=== PATIENT | female | born 1990 | race Caucasian/White ===

== ENCOUNTER 2016-10-30 09:16 | Emergency (ER) | payer MEDICAID, OTHER ==
--- NOTE | 2016-10-30 10:16 | ED ---
Lower Extremity Injury HPI - General Chief Complaint: Extremity Injury, Lower Stated Complaint: stepped on nail, rt foot Source: patient, RN notes reviewed Mode of arrival: ambulatory Limitations: physical limitation - History of Present Illness Initial Comments: 26-year-old female presents to the emergency department with a chief complaint of right foot injury. Patient states she slipped on the on Sunday. Patient states she continue has pain to the right foot she has noticed pus and drainage from the area. Patient denies any fever chills with this. Patient states she hasn't noticed any redness but states that she does feel swollen. Patient states that she was concerned due to the injury so she thought that she should be evaluated. Patient states that she is up-to-date on her tetanus. Patient denies any recent fever, chills, shortness of breath, chest pain, back pain, abdominal pain, nausea vomiting, numbness or tingling, dysuria or hematuria, constipation or diarrhea, headaches or visual changes, or any other current symptoms. - Related Data Home Medications Medication Instructions Recorded Confirmed Levothyroxine Sodium [Synthroid] 150 mcg PO HS 06/23/15 10/08/15 Cyanocobalamin [Vitamin B-12] 500 mcg PO DAILY@1200 06/25/15 10/05/15 Ferrous Sulfate [Feosol] 65 mg PO DAILY 06/25/15 10/05/15 Folic Acid 800 mcg PO DAILY 06/25/15 10/05/15 Hair,Skin,Nails 1 tab PO DAILY 06/25/15 10/05/15 [place]-3 Fatty Acids/Fish Oil [Fish 1 each PO DAILY 06/25/15 10/05/15 Oil 1,000 mg Softgel] Cranberry Extract [Cranberry] 500 mg PO DAILY 10/30/16 10/30/16 Magnesium 200 mg PO DAILY 10/30/16 10/30/16 Previous Rx's Medication Instructions Recorded Ciprofloxacin HCl [Cipro] 500 mg PO Q12HR #14 tablet 10/30/16 Allergies Allergy/AdvReac Type Severity Reaction Status Date / Time latex Allergy Rash/Hives Verified 10/30/16 11:11 Review of Systems ROS Statement: Those systems with pertinent positive or pertinent negative responses have been documented in the HPI. ROS Other: All systems not noted in ROS Statement are negative. Past Medical History Past Medical History: Asthma, GERD/Reflux, Thyroid Disorder Additional Past Medical History / Comment(s): migraines, frequent abd pain, hiatal hernia History of Any Multi-Drug Resistant Organisms: None Reported Past Surgical History: No Surgical Hx Reported Past Anesthesia/Blood Transfusion Reactions: No Reported Reaction Additional Past Anesthesia/Blood Transfusion Reaction / Comment(s): never had anesthesia or blood transfusion Past Psychological History: No Psychological Hx Reported Smoking Status: Never smoker Past Alcohol Use History: Rare Past Drug Use History: None Reported - Past Family History Father Additional Family Medical History / Comment(s): may have had a "minor blood clot 15 years ago in his legs" Mother Family Medical History: Hypertension General Exam - General Exam Comments Initial Comments: General: The patient is awake and alert, in no distress, and does not appear acutely ill. Neck: The neck is supple, there is no tenderness. Cardiovascular: There is a regular rate and rhythm. No murmur, rub or gallop is appreciated. Respiratory: Lungs are clear to auscultation, respirations are non-labored, breath sounds are equal. No wheezes, stridor, rales, or rhonchi. Musculoskeletal: Sensation intact with 2+ pulses throughout the right lower extremity. Patient does appear to have a puncture wound. There does appear to be some drainage from the area. No erythema noted. Minimal tenderness over the area. Neurological: CN II-XII intact, There are no obvious motor or sensory deficits. Coordination appears grossly intact. Speech is normal. Skin: Skin is warm and dry and no rashes or lesions are noted. Psychiatric: Normal mood and affect. Limitations: physical limitation Course Vital Signs 10/30/16 09:32 Temperature 98.3 F Pulse Rate 76 Respiratory 18 Rate Blood Pressure 137/82 O2 Sat by Pulse 98 Oximetry Procedures - Procedures Initial comment: Area was cleaned and prepped. Patient underwent lidocaine injection with 6 mm of lidocaine to the puncture site. Patient underwent a window opening with an 11 blade scalpel. The patient then had irrigation to the area. Medical Decision Making - Medical Decision Making 26-year-old female presents emergency Department chief complaint of right foot pain after stepping on a nail. There is some x-rays reviewed and negative. Patient underwent a clean drainage and a small window was opened up to help with drainage. We discussed return for worsening follow-up. We discussed all the patient's questions. She stated that she understood and is in agreement with plan. Patient will be discharged home. - Radiology Data Radiology results: image reviewed Interpreted by me: Interpreted by me: right foot xray: 3 view, no fracture, no dislocation, no bony lesions, no foreign bodies, no soft tissue damage. Waiting official radiology read. Disposition Clinical Impression: Puncture wound of right foot Disposition: HOME SELF-CARE Condition: Stable Instructions: Puncture Wound (ED) Additional Instructions: Please use medication as discussed. Please follow up with family doctor if symptoms have not improved over the next two days. Please return to the emergency room if your symptoms increase or worsen or for any other concerns. Prescriptions: Ciprofloxacin HCl [Cipro] 500 mg PO Q12HR #14 tablet Referrals: Gabi Watson MD [Primary Care Provider] - 1-2 days Time of Disposition: 11:13
[2016-10-30 11:32] VITALS: BP 111/67; PULSE 68; RESP 16; TEMP 98.2
--- NOTE | 2016-10-31 13:17 | XR ---
EXAMINATION TYPE: XR foot complete RT DATE OF EXAM: 10/30/2016 10:21 AM COMPARISON: NONE HISTORY: Pain, stepped on nail TECHNIQUE: 3 view right foot FINDINGS: No acute fractures are evident. Soft tissues are normal. No radiopaque foreign bodies are e vident. IMPRESSION: 1. Normal three-view right foot
== END 2016-10-30 11:33 | disposition home or self-care (01) ==
LOC: EC 09:16
DX: S91.331A Puncture wound without foreign body, right foot, initial encounter (principal); E07.9 Disorder of thyroid, unspecified; Z91.040 Latex allergy status; Z79.899 Other long term (current) drug therapy; W45.0XXA Nail entering through skin, initial encounter
CPT/HCPCS: 99283

== ENCOUNTER → 2017-06-11 | Outpatient (CLI) | payer MEDICAID ==
--- NOTE | 2017-06-11 19:26 | US ---
EXAMINATION TYPE: US pelvic complete DATE OF EXAM: 06/11/2017 COMPARISON: NONE CLINICAL HISTORY: N94.6 Dysmenorrhea, R10.9 Unspecified abd pain. TECHNIQUE: Transabdominal (TA) Date of LMP: 04/25/2017 EXAM MEASUREMENTS: Uterus: 7.5 x 3.4 x 4.5 cm Endometrial Stripe: 0.53 cm Right Ovary: 2.3 x 1.8 x 1.7 cm Left Ovary: 3.5 x 1.9 x 2.2 cm 1. Uterus: Anteverted wnl 2. Endometrium: wnl 3. Right Ovary: wnl 4. Left Ovary: wnl 5. Bilateral Adnexa: wnl 6. Posterior cul-de-sac: IMPRESSION: Normal transabdominal pelvic sonogram.
== END ==
LOC: RADUSMAIN 17:47
PROVIDERS: ATTEND Internal Medicine
DX: N94.6 Dysmenorrhea, unspecified (principal); R10.2 Pelvic and perineal pain
CPT/HCPCS: 76856

== ENCOUNTER 2018-01-03 09:25 | Day surgery (SDC) | payer MEDICAID ==
[2017-12-31 18:26] VITALS: BMI 50.8
[~2018-01-03 09:25] MED LIST: LACTATED RINGERS 1,000 ML IV SCH
[2018-01-03 09:45] VITALS: TEMP 97.9
[2018-01-03] MEDS ORDERED: LIDOCAINE 1% 20 ML VIAL (10MG/ML) FOR IV START INTRADERMA ONE (09:48)
[2018-01-03] MEDS ORDERED: GLYCOPYRROLATE 0.2 MG/ML 2 ML VIAL ONE (10:16)
[2018-01-03] MEDS ORDERED: LIDOCAINE 1% INJ 10MG/ML (20 ML MDV) ONE (10:16)
[2018-01-03] MEDS ORDERED: MIDAZOLAM 2 MG/2 ML VIAL ONE (10:16)
[2018-01-03] MEDS ORDERED: PROPOFOL 10 MG/ML 20 ML VIAL IV ONE (10:16)
[2018-01-03] MEDS ORDERED: KETAMINE 10 MG/ML 20 ML VIAL ONE (10:16)
--- NOTE | 2018-01-03 10:18 | P.GSHP ---
History of Present Illness H&P Date: 01/03/18 Chief Complaint: GERD This a 27-year-old female who presents today for EGD. Patient has had issues with GERD. Past Medical History Past Medical History: Asthma, Blood Disorder, GERD/Reflux, Skin Disorder, Thyroid Disorder Additional Past Medical History / Comment(s): POSS "BORDERLINE DIABETES." Migraines. UPPER CHEST DISCOMFORT, RECENT VOMITING X2 WHEN BENDING OVER. hiatal hernia. ECZEMA, MINOR PSORIASIS. ANEMIA CHILD. History of Any Multi-Drug Resistant Organisms: None Reported Past Surgical History: No Surgical Hx Reported Additional Past Surgical History / Comment(s): EGD X2. Past Anesthesia/Blood Transfusion Reactions: No Reported Reaction Additional Past Anesthesia/Blood Transfusion Reaction / Comment(s): never had blood transfusion Smoking Status: Never smoker - Past Family History Father Family Medical History: Deep Vein Thrombosis (DVT) Additional Family Medical History / Comment(s): may have had a "minor blood clot 15 years ago in his legs" Mother Family Medical History: Hypertension Medications and Allergies Home Medications Medication Instructions Recorded Confirmed Type Levothyroxine Sodium [Synthroid] 150 mcg PO DAILY 06/23/15 01/03/18 History Hair,Skin,Nails 1 tab PO DAILY 06/25/15 01/03/18 History [place]-3 Fatty Acids/Fish Oil [Fish 1 cap PO DAILY 06/25/15 01/03/18 History Oil 1,000 mg Softgel] Acetaminophen [Tylenol] 650 mg PO Q4H PRN 12/31/17 01/03/18 History Ferrous Sulfate [Feosol] 325 mg PO HS 12/31/17 01/03/18 History Ibuprofen [Motrin Ib] 600 - 800 mg PO Q8H PRN 12/31/17 01/03/18 History Inhaler (Unsure Of Name) 2 puff INHALATION DIRECTED PRN 12/31/17 01/03/18 History Loratadine [Claritin] 10 mg PO DAILY 12/31/17 01/03/18 History Multivitamins, Thera [Multivitamin 1 tab PO DAILY 12/31/17 01/03/18 History (formulary)] Omeprazole [PriLOSEC] 40 mg PO DAILY 12/31/17 01/03/18 History Pantoprazole Sodium [Protonix] 40 mg PO DAILY 12/31/17 01/03/18 History Phentermine HCl [Adipex-P] 37.5 mg PO QAM 12/31/17 01/03/18 History Allergies Allergy/AdvReac Type Severity Reaction Status Date / Time latex Allergy Rash/Hives Verified 12/31/17 18:00 Surgical - Exam Vital Signs Temp Pulse Resp BP Pulse Ox 97.9 F 95 16 126/76 97 01/03/18 09:38 01/03/18 09:38 01/03/18 09:38 01/03/18 09:38 01/03/18 09:38 - General well developed, no distress - Eyes PERRL - ENT normal pinna - Neck no masses - Respiratory normal expansion - Cardiovascular Rhythm: regular - Abdomen Abdomen: soft, non tender Assessment and Plan Assessment: GERD. We'll perform EGD.
--- NOTE | 2018-01-03 10:31 | P.OP ---
Date of Procedure: 01/03/18 Preoperative Diagnosis: GERD Postoperative Diagnosis: Antral gastritis No evidence of hiatal hernia Mild esophagitis Procedure(s) Performed: EGD Anesthesia: MAC Surgeon: Lobo Gonzalez Pathology: other (Antrum, esophagus) Disposition: PACU Description of Procedure: The patient's placed on the endoscopy table in the lateral position. She received IV sedation. The gastroscope placed oropharynx and passed into the esophagus and into the stomach. The scope was then placed through the pylorus. The first and second portion of the duodenum appeared normal. Scope was then brought back the antrum and this was mildly inflamed. A biopsies performed. The scope was then retroflexed and the remainder of the stomach appeared normal. There was no significant hiatal hernia. The GE junction was at 47 is. The distal esophagus appeared mildly inflamed a biopsies performed. The proximal esophagus appeared normal. Scope was withdrawn for patient. The patient's minimal findings a HIDA scan was ordered.
[2018-01-03 10:34] VITALS: BP 117/89; PULSE 77; RESP 12
--- NOTE | 2018-01-03 13:48 | NM ---
EXAMINATION TYPE: NM hepatobiliary w CCK DATE OF EXAM: 01/03/2018 COMPARISON: NONE HISTORY: Gastroesophageal reflux, indigestion and abdominal pain. TECHNIQUE: After the intravenous administration of 5.18 mCi Tc 99m Mebrofenin hepatobiliary scintigra phy is performed. Immediate images post injection. FINDINGS: There is satisfactory initial accumulation of tracer by the liver. The gallbladder is visualized wit hin one minute. The small bowel activity is noted within 2 minutes. At one hour CCK was administere d, patient was injected with 2.5 mcg of Kinevac, and gallbladder ejection fraction is calculated at 1 4 %, indicative of biliary dyskinesia. Therefore there is no scintigraphic evidence of cystic or com mon bile duct obstruction to suggest acute cholecystitis or chronic cholecystitis. IMPRESSION: 1. Findings indicative of biliary dyskinesia with abnormal gallbladder ejection fraction of 14%. 2. No scintigraphic evidence of acute or chronic cholecystitis
== END 2018-01-03 10:59 | disposition home or self-care (01) ==
LOC: ORWHC2ENDO 09:25
PROVIDERS: ATTEND Surgery
DX: K29.50 Unspecified chronic gastritis without bleeding (principal); K21.0 Gastro-esophageal reflux disease with esophagitis; J45.909 Unspecified asthma, uncomplicated; R73.03 Prediabetes; E07.9 Disorder of thyroid, unspecified; Z79.899 Other long term (current) drug therapy; Z82.49 Family history of ischemic heart disease and other diseases of the circulatory system; Z91.040 Latex allergy status
CPT/HCPCS: 81025; 88305; 78227; 43239; A9537; J2250; J2805; J2001; J2704

== ENCOUNTER 2018-01-24 06:50 | Day surgery (SDC) | payer MEDICAID ==
[2018-01-15 15:34] VITALS: BMI 50.8
[~2018-01-24 06:50] MED LIST changes: +DEXAMETHASONE SOD PHOSPHATE 10 MG/ML 1 ML VIAL IV ONE; +HEPARIN SODIUM,PORCINE 5,000 UNIT/ML 1 ML VIAL SQ ONE; +ONDANSETRON 4 MG/2 ML VIAL IVP ONE
--- NOTE | 2018-01-24 07:51 | P.GSHP ---
History of Present Illness H&P Date: 01/24/18 Chief Complaint: Right upper quadrant pain This a 27-year-old female referred from Dr. Watson. Patient presents today for laparoscopic cholestatic. Her recent HIDA scan shows abnormal ejection fraction consistent with chronic Pablo cholecystitis and biliary dyskinesia. Past Medical History Past Medical History: Asthma, Blood Disorder, GERD/Reflux, Skin Disorder, Thyroid Disorder Additional Past Medical History / Comment(s): Migraines; Hiatal hernia. ECZEMA , MINOR PSORIASIS. ANEMIA History of Any Multi-Drug Resistant Organisms: None Reported Past Surgical History: No Surgical Hx Reported Additional Past Surgical History / Comment(s): EGD X 3 Past Anesthesia/Blood Transfusion Reactions: No Reported Reaction Additional Past Anesthesia/Blood Transfusion Reaction / Comment(s): never had blood transfusion Smoking Status: Never smoker - Past Family History Father Family Medical History: Deep Vein Thrombosis (DVT) Additional Family Medical History / Comment(s): may have had a "minor blood clot 15 years ago in his legs" Mother Family Medical History: Hypertension Medications and Allergies Home Medications Medication Instructions Recorded Confirmed Type Levothyroxine Sodium [Synthroid] 150 mcg PO DAILY 06/23/15 01/15/18 History Hair,Skin,Nails 1 tab PO DAILY 06/25/15 01/15/18 History [place]-3 Fatty Acids/Fish Oil [Fish 1 cap PO DAILY 06/25/15 01/15/18 History Oil 1,000 mg Softgel] Acetaminophen [Tylenol] 650 mg PO Q4H PRN 12/31/17 01/15/18 History Ferrous Sulfate [Feosol] 325 mg PO HS 12/31/17 01/15/18 History Ibuprofen [Motrin Ib] 600 - 800 mg PO Q8H PRN 12/31/17 01/15/18 History Loratadine [Claritin] 10 mg PO DAILY 12/31/17 01/15/18 History Multivitamins, Thera [Multivitamin 1 tab PO DAILY 12/31/17 01/15/18 History (formulary)] Pantoprazole Sodium [Protonix] 40 mg PO DAILY 12/31/17 01/15/18 History Albuterol Inhaler [Ventolin Hfa 1 - 2 puff INHALATION RT-Q6H PRN 01/15/18 History Inhaler] Allergies Allergy/AdvReac Type Severity Reaction Status Date / Time latex Allergy Rash/Hives Verified 01/24/18 07:05 Surgical - Exam Vital Signs Temp Pulse Resp BP Pulse Ox 97.9 F 102 H 16 125/69 97 01/24/18 07:11 01/24/18 07:11 01/24/18 07:11 01/24/18 07:11 01/24/18 07:11 - General well developed, no distress - Eyes PERRL - ENT normal pinna - Neck no masses - Respiratory normal expansion - Cardiovascular Rhythm: regular - Abdomen Abdomen: soft, non tender Assessment and Plan Assessment: Right upper quadrant pain Chronic cholecystitis We'll perform laparoscopic cholecystectomy.
[2018-01-24] MEDS ORDERED: PROPOFOL 10 MG/ML 20 ML VIAL IV ONE (07:58)
[2018-01-24] MEDS ORDERED: SUCCINYLCHOLINE CHLORIDE 100 MG/5 ML SYR IV ONE (07:58)
[2018-01-24] MEDS ORDERED: ePHEDrine SULFATE/0.9% NACL/PF 50 MG/5 ML SYRINGE IV ONE (07:58)
[2018-01-24] MEDS ORDERED: LIDOCAINE 1% INJ 10MG/ML (20 ML MDV) ONE (07:58)
[2018-01-24] MEDS ORDERED: NEOSTIGMINE 1 MG/ML 10 ML VIAL ONE (07:58)
[2018-01-24] MEDS ORDERED: GLYCOPYRROLATE 0.2 MG/ML 2 ML VIAL ONE (07:58)
[2018-01-24] MEDS ORDERED: ROCURONIUM BROMIDE 10 MG/ML 10 ML VIAL IV ONE (07:58)
[2018-01-24] MEDS ORDERED: HYDROmorphone (PF) 1 MG/ML ONE (07:58)
[2018-01-24] MEDS ORDERED: fentaNYL (PF) 50 MCG/ML 2 ML AMP ONE (07:58)
[2018-01-24] MEDS ORDERED: MIDAZOLAM 2 MG/2 ML VIAL ONE (07:58)
[2018-01-24] MEDS ORDERED: KETOROLAC 30 MG/ML 1 ML VIAL ONE (07:58)
[2018-01-24] MEDS ORDERED: BUPIVACAINE (PF) 0.5% 30 ML VIAL SQ ONE (08:43)
[2018-01-24] MEDS ORDERED: LACTATED RINGERS 1,000 ML IV ONE (09:09)
--- NOTE | 2018-01-24 09:13 | P.OP ---
Date of Procedure: 01/24/18 Preoperative Diagnosis: Biliary dyskinesia Postoperative Diagnosis: Biliary dyskinesia Chronic cholecystitis Procedure(s) Performed: Laparoscopic cholecystectomy Anesthesia: VINOD Surgeon: Lobo Gonzalez Estimated Blood Loss (ml): 5 Pathology: other (Gallbladder) Condition: stable Disposition: PACU Description of Procedure: The patient was placed on the operating table. The patient received a general endotracheal tube anesthesia. The patients abdomen was prepped and draped in the usual sterile fashion. Through an infraumbilical stab incision, the fascia of the anterior abdominal wall was grasped with a pair of Kochers and then the Veress needle was placed in the peritoneal cavity. Position of the Veress needle was confirmed with positive drop test. The abdomen was then insufflated. After adequate insufflation, the 10 mm trocar was placed in the peritoneal cavity. Following this the laparoscope was placed in the peritoneal cavity. The patient was placed in the head-up, right side up position and then a 5 mm trocar was placed in the right lateral and right subcostal position under direct visualization. A 8 mm trocar was placed in the epigastric position. The gallbladder was grasped in the fundus and infundibulum. Traction on the gallbladder was placed in the lateral and the cephalad positions. The triangle of Calot was visualized.. The cystic duct was bluntly dissected until the union of the cystic duct and common bile duct was seen. The cystic duct was then divided and sealed with the Harmonic scissors. A PDS Endoloop was then placed throughout the cystic duct stump. The cystic artery divided and sealed with the Harmonic scissors. The gallbladder was then removed from the liver bed using Harmonic scissors. The gallbladder was then extracted through the epigastric port site. Operative field was checked for any bleeding spots and Harmonic scissors was used to coagulate the liver bed. The abdomen was irrigated. The trocars were removed. The skin was closed using interrupted 3-0 Vicryl suture. Dermabond dressing were applied. The patient tolerated the procedure well.
[2018-01-24 09:16] VITALS: TEMP 97.4
[2018-01-24 09:24] VITALS: RESP 16
[2018-01-24] MEDS: HYDROmorphone 0.5 MG/0.5 ML SYRINGE IVP PRN ×2 (09:53→10:07)
[2018-01-24 11:05] VITALS: BP 104/68; PULSE 90
== END 2018-01-24 11:28 | disposition home or self-care (01) ==
LOC: OR 06:50
PROVIDERS: ATTEND Surgery
DX: K81.1 Chronic cholecystitis (principal); K82.8 Other specified diseases of gallbladder; J45.909 Unspecified asthma, uncomplicated; K21.9 Gastro-esophageal reflux disease without esophagitis; E07.9 Disorder of thyroid, unspecified; G43.909 Migraine, unspecified, not intractable, without status migrainosus; L30.9 Dermatitis, unspecified; L40.9 Psoriasis, unspecified; D64.9 Anemia, unspecified; Z79.890 Hormone replacement therapy; Z79.899 Other long term (current) drug therapy; Z91.040 Latex allergy status
CPT/HCPCS: 81025; 88304; 47562; J2250; J1644; J1100; J2710; J0690; J2405; J2001; J3010; J1885; J1170 ×2; J0330; J2704

== ENCOUNTER → 2020-03-23 | Outpatient (CLI) | payer BC ==
--- NOTE | 2020-03-23 16:45 | XR ---
EXAMINATION TYPE: XR foot limited LT DATE OF EXAM: 03/23/2020 COMPARISON: NONE HISTORY: 29-year-old female M79.672, left heel pain TECHNIQUE: 2 views FINDINGS: Joint spaces throughout are maintained. No acute fracture, subluxation, or dislocation. No sizable he el spur. IMPRESSION: 2 views without acute osseous abnormality seen. No sizable heel spur.
== END | disposition home or self-care (01) ==
LOC: RADXRMAIN 15:24
PROVIDERS: ATTEND Internal Medicine
DX: M79.672 Pain in left foot (principal)

== ENCOUNTER 2022-07-25 21:21 | Emergency (ER) | payer BC, OTHER ==
[2022-07-25 21:55] VITALS: TEMP 98
--- NOTE | 2022-07-26 01:09 | ED ---
General Adult HPI - General Chief complaint: Abdominal Pain Stated complaint: Abd pain, back pain Time Seen by Provider: 07/26/22 00:43 Source: patient, RN notes reviewed Mode of arrival: ambulatory Limitations: no limitations - History of Present Illness Initial comments: 32-year-old female presents to the emergency Department with complaints of right flank pain, onset Sunday morning. States pain has persisted and radiates to the right lower abdomen and pelvis. Patient states she noticed flecks of blood in her urine on Sunday. States she has been taking Tylenol and using a heating pad with minimal relief of symptoms. States she has urinary urgency and has the sensation of full bladder even after urination. Denies fever, chills, headache, dizziness, chest pain, nausea, vomiting, or diarrhea. No chance of . - Related Data Home Medications Medication Instructions Recorded Confirmed Levothyroxine Sodium [Synthroid] 150 mcg PO DAILY 06/23/15 01/15/18 Hair,Skin,Nails 1 tab PO DAILY 06/25/15 01/15/18 [place]-3 Fatty Acids/Fish Oil [Fish 1 cap PO DAILY 06/25/15 01/15/18 Oil 1,000 mg Softgel] Acetaminophen [Tylenol] 650 mg PO Q4H PRN 12/31/17 01/15/18 Ferrous Sulfate [Feosol] 325 mg PO HS 12/31/17 01/15/18 Ibuprofen [Motrin Ib] 600 - 800 mg PO Q8H PRN 12/31/17 01/15/18 Loratadine [Claritin] 10 mg PO DAILY 12/31/17 01/15/18 Multivitamins, Thera [Multivitamin 1 tab PO DAILY 12/31/17 01/15/18 (formulary)] Pantoprazole Sodium [Protonix] 40 mg PO DAILY 12/31/17 01/15/18 Albuterol Inhaler [Ventolin Hfa 1 - 2 puff INHALATION RT-Q6H PRN 01/15/18 01/15/18 Inhaler] Previous Rx's Medication Instructions Recorded Docusate [Colace] 100 mg PO BID #20 capsule 01/24/18 HYDROcodone/APAP 7.5-325MG [[place] 1 tab PO Q4H PRN 3 Days #18 tab 01/24/18 7.5-325] Cephalexin [Keflex] 500 mg PO BID 7 Days #14 cap 07/26/22 Allergies Allergy/AdvReac Type Severity Reaction Status Date / Time latex Allergy Rash/Hives Verified 07/25/22 21:55 Review of Systems ROS Statement: Those systems with pertinent positive or pertinent negative responses have been documented in the HPI. ROS Other: All systems not noted in ROS Statement are negative. Past Medical History Past Medical History: Asthma, Blood Disorder, GERD/Reflux, Skin Disorder, Thyroid Disorder Additional Past Medical History / Comment(s): Migraines; Hiatal hernia. ECZEMA, MINOR PSORIASIS. ANEMIA History of Any Multi-Drug Resistant Organisms: None Reported Past Surgical History: No Surgical Hx Reported Additional Past Surgical History / Comment(s): EGD X 3 Past Anesthesia/Blood Transfusion Reactions: No Reported Reaction Additional Past Anesthesia/Blood Transfusion Reaction / Comment(s): never had blood transfusion Past Psychological History: Anxiety Past Alcohol Use History: Rare Past Drug Use History: None Reported - Past Family History Father Family Medical History: Deep Vein Thrombosis (DVT) Additional Family Medical History / Comment(s): may have had a "minor blood clot 15 years ago in his legs" Mother Family Medical History: Hypertension General Exam Limitations: no limitations General appearance: alert, in no apparent distress Respiratory exam: Present: normal lung sounds bilaterally. Absent: respiratory distress, wheezes, rales, rhonchi, stridor Cardiovascular Exam: Present: regular rate, normal rhythm, normal heart sounds. Absent: systolic murmur, diastolic murmur, rubs, gallop, clicks GI/Abdominal exam: Present: soft, normal bowel sounds. Absent: distended, tenderness, guarding, rebound, rigid Back exam: Present: CVA tenderness (R) Neurological exam: Present: alert, oriented X3 Psychiatric exam: Present: normal affect, normal mood Course Vital Signs 07/25/22 07/26/22 21:51 03:17 Temperature 98.0 F Pulse Rate 86 75 Respiratory 18 14 Rate Blood Pressure 140/86 126/86 O2 Sat by Pulse 97 98 Oximetry Medical Decision Making - Medical Decision Making 32-year-old female with no significant past medical history presents to the emergency Department with complaints of right flank pain and concerns kidney stone. Upon exam, patient is well-appearing and in no acute distress. Urinalysis was obtained showing small amount of blood in the urine, positive nitrate, large leukocyte esterase, 29 urine WBCs, many urine WBC clumps, and moderate urine bacteria. Patient will be started on Keflex. First dose given in the emergency department. Supportive treatment discussed as well. Encouraged to follow up with PCP for recheck 48 hours from now. Return parameters were discussed in detail. Patient verbalizes understanding and agrees with this plan. Attending: Kulwinder. Was pt. sent in by a medical professional or institution? @ -No Did you speak to anyone other than the patient for history? @ -No Did you review nursing and triage notes? @ -Yes, agree Were old charts reviewed? @ -No Differential Diagnosis? @ -UTI, renal calculi, appendicitis, ovarian cyst, this is not meant to be an exhaustive list EKG interpreted by me (3pts min.)? @ -Not applicable X-rays interpreted by me (1pt min.)? @ -Not applicable CT interpreted by me (1pt min.)? @ -Not applicable U/S interpreted by me (1pt. min.)? @ -Not applicable What testing was considered but not performed? (CT, X-rays, U/S, labs)? Why? @ -Considered imaging for renal calculi, however as patient only has 4 urine RBCs and no significant discomfort, this is felt to be unlikely. What meds were considered but not given? Why? @ -Motrin considered, but patient is resting comfortably having taken medicine prior to arrival. Did you discuss the management of the patient with other professionals? @ -None Did you reconcile home meds? @ -No Was smoking cessation discussed for >3mins.? @ -No Was critical care preformed (if so, how long)? @ -No Were there social determinants of health that impacted care today? How? (Homelessness, low income, unemployed, alcoholism, drug addiction, transportation, low edu. Level, literacy, decrease access to med. care, mcc, rehab)? @ -No Was there de-escalation of care discussed even if they declined? (Discuss DNR or withdrawal of care, Hospice)? @ -No What co-morbidities impacted this encounter? (DM, HTN, Smoking, COPD, CAD, Cancer, CVA, Hep., AIDS, mental health diagnosis, sleep apnea, morbid obesity)? @No Was patient admitted / discharged? @ -Discharged Undiagnosed new problem with uncertain prognosis? @ -None Drug Therapy requiring intensive monitoring for toxicity (Heparin, Nitro, Insulin, Cardizem)? @ -None Were any procedures done? @ -None Diagnosis/symptom? @ -Acute cystitis Acute, or Chronic, or Acute on Chronic? @ -Acute Uncomplicated (without systemic symptoms) or Complicated (systemic symptoms)? @ -Uncomplicated Side effects of treatment? @ -None Exacerbation, Progression, or Severe Exacerbation] @ -No Poses a threat to life or bodily function? @ -No - Lab Data Lab Results 07/26/22 07/26/22 Range/Units 00:46 01:27 Urine Color Yellow Urine Appearance Cloudy H (Clear) Urine pH 6.5 (5.0-8.0) Ur Specific [place] 1.015 (1.001-1.035) Urine Protein Trace H (Negative) Urine Glucose (UA) Negative (Negative) Urine Ketones Negative (Negative) Urine Blood Small H (Negative) Urine Nitrite Positive H (Negative) Urine Bilirubin Negative (Negative) Urine Urobilinogen <2.0 (<2.0) mg/dL Ur Leukocyte Esterase Large H (Negative) Urine RBC 4 (0-5) /hpf Urine WBC 29 H (0-5) /hpf Urine WBC Clumps Many H (None) /hpf Ur Squamous Epith Cells 3 (0-4) /hpf Urine Bacteria Moderate H (None) /hpf Hyaline Casts 1 (0-2) /lpf Urine Mucus Rare H (None) /hpf Urine HCG, Qual Not Detected (Not Detectd) Disposition Clinical Impression: UTI (urinary tract infection) Disposition: HOME SELF-CARE Condition: Stable Instructions (If sedation given, give patient instructions): Urinary Tract Infection in Women (ED) Additional Instructions: Take full course of antibiotic as prescribed. Drink lots of water. Avoid sugary foods and caffeine. Your being provided with a note for work. Follow-up with your PCP for a recheck in 48-72 hours if needed. Return to the emergency department with any new, worsening, or concerning sy mptoms. Prescriptions: Cephalexin [Keflex] 500 mg PO BID 7 Days #14 cap Is patient prescribed a controlled substance at d/c from ED?: No Referrals: None,Stated [Primary Care Provider] - 1-2 days Time of Disposition: 03:12
[2022-07-26 02:58] LABS: Appearance,Urine Cloudy (Clear); Bacteria,Urine Moderate /hpf; Bilirubin,Urine Negative (Negative); Blood,Urine Small (Negative); Color,Urine Yellow; Glucose,Urine (UA) Negative (Negative); Hyaline Casts,Urine 1 /lpf (0-2); Ketones,Urine Negative (Negative); Leukocyte Esterase,Urine Large (Negative); Mucus,Urine Rare /hpf; Nitrite,Urine Positive (Negative); PH, Urine 6.5 (5.0-8.0); Protein,Urine Trace (Negative); RBC,Urine 4 /hpf (0-5); Specific Gravity,Urine 1.015 (1.001-1.035); Squamous Epithelial Cell,Urine 3 /hpf (0-4); Urobilinogen,Urine <2.0 mg/dL (<2.0); WBC,Urine 29 /hpf (0-5)
[2022-07-26] MEDS ORDERED: CEPHALEXIN 500 MG CAP PO STA (03:09)
[2022-07-26 03:18] VITALS: BP 126/86; PULSE 75; RESP 14
== END 2022-07-26 03:19 | disposition home or self-care (01) ==
LOC: EC 21:21
DX: N39.0 Urinary tract infection, site not specified (principal); J45.909 Unspecified asthma, uncomplicated; K21.9 Gastro-esophageal reflux disease without esophagitis; E07.9 Disorder of thyroid, unspecified; F41.9 Anxiety disorder, unspecified; Z79.890 Hormone replacement therapy; Z79.899 Other long term (current) drug therapy; Z91.040 Latex allergy status
CPT/HCPCS: 81001; 81025; 87077; 87086; 87186; 99284

== ENCOUNTER 2022-11-22 11:57 | Emergency (ER) | payer OTHER ==
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
[2022-11-22 13:23] VITALS: BP 129/90; PULSE 87; RESP 18; TEMP 97.2
== END 2022-11-22 13:23 | disposition home or self-care (01) ==
LOC: EC 11:57
DX: S06.0XAA Concussion with loss of consciousness status unknown, initial encounter (principal); R40.2362 Coma scale, best motor response, obeys commands, at arrival to emergency department; R40.2142 Coma scale, eyes open, spontaneous, at arrival to emergency department; R40.2252 Coma scale, best verbal response, oriented, at arrival to emergency department; J45.909 Unspecified asthma, uncomplicated; K21.9 Gastro-esophageal reflux disease without esophagitis; E07.9 Disorder of thyroid, unspecified; F17.290 Nicotine dependence, other tobacco product, uncomplicated; Z79.890 Hormone replacement therapy; Z79.899 Other long term (current) drug therapy; Z91.040 Latex allergy status; Y04.8XXA Assault by other bodily force, initial encounter
CPT/HCPCS: 70450; 99284

== ENCOUNTER 2022-11-27 11:46 | Emergency (ER) | payer OTHER ==
[2022-11-27] MEDS ORDERED: DEXAMETHASONE SOD PHOSPHATE 10 MG/ML 1 ML VIAL IVP STA (12:30)
[2022-11-27] MEDS ORDERED: METOCLOPRAMIDE 5 MG/ML 2 ML VIAL IVP STA (12:30)
[2022-11-27] MEDS ORDERED: SODIUM CHLORIDE 0.9% 1,000 ML IV STA (12:30)
[2022-11-27] MEDS ORDERED: diphenhydrAMINE 50 MG/ML 1 ML VIAL IVP STA (12:30)
[2022-11-27] MEDS ORDERED: KETOROLAC 15 MG/ML 1 ML VIAL IVP STA (12:30)
--- NOTE | 2022-11-27 12:34 | ED ---
Headache HPI - General Chief Complaint: Headache Stated Complaint: Headache/Vomiting Time Seen by Provider: 11/27/22 12:25 Source: patient, RN notes reviewed Mode of arrival: ambulatory Limitations: no limitations - History of Present Illness Initial Comments: This is a 32-year-old female who presents to the emergency department for a migraine. States that she has had chronic migraines since she was 14 years old. She has not been able to get the headache to resolve with extra strength Tylenol and she is now having associated nausea, vomiting, and photophobia. She would not describe this as the worst headache of her life. She is not currently on any preventative or abortive medications, but states that she used to take Topamax, which she did not tolerate well. She then tried Nurtec, which worked well, however her insurance will not cover it. Imitrex gave her heart palpitations so she is no longer taking that either. Denies any fevers, chills, sore throat, cough, dyspnea, chest pain, palpitations, abdominal pain, diarrhea, or back pain. MD Complaint: "migraine" - Related Data Home Medications Medication Instructions Recorded Confirmed Levothyroxine Sodium [Synthroid] 150 mcg PO DAILY 06/23/15 01/15/18 Hair,Skin,Nails 1 tab PO DAILY 06/25/15 01/15/18 [place]-3 Fatty Acids/Fish Oil [Fish 1 cap PO DAILY 06/25/15 01/15/18 Oil 1,000 mg Softgel] Acetaminophen [Tylenol] 650 mg PO Q4H PRN 12/31/17 01/15/18 Ferrous Sulfate [Feosol] 325 mg PO HS 12/31/17 01/15/18 Ibuprofen [Motrin Ib] 600 - 800 mg PO Q8H PRN 12/31/17 01/15/18 Loratadine [Claritin] 10 mg PO DAILY 12/31/17 01/15/18 Multivitamins, Thera [Multivitamin 1 tab PO DAILY 12/31/17 01/15/18 (formulary)] Pantoprazole Sodium [Protonix] 40 mg PO DAILY 12/31/17 01/15/18 Albuterol Inhaler [Ventolin Hfa 1 - 2 puff INHALATION RT-Q6H PRN 01/15/18 01/15/18 Inhaler] Previous Rx's Medication Instructions Recorded Docusate [Colace] 100 mg PO BID #20 capsule 01/24/18 HYDROcodone/APAP 7.5-325MG [[place] 1 tab PO Q4H PRN 3 Days #18 tab 01/24/18 7.5-325] Cephalexin [Keflex] 500 mg PO BID 7 Days #14 cap 07/26/22 Ketorolac [Toradol] 10 mg PO Q6HR PRN #12 tab 11/27/22 Ondansetron Odt [Zofran Odt] 4 mg PO Q8HR PRN #15 tab 11/27/22 Allergies Allergy/AdvReac Type Severity Reaction Status Date / Time latex Allergy Rash/Hives Verified 11/27/22 12:24 Review of Systems ROS Statement: Those systems with pertinent positive or pertinent negative responses have been documented in the HPI. ROS Other: All systems not noted in ROS Statement are negative. Past Medical History Past Medical History: Asthma, Blood Disorder, GERD/Reflux, Skin Disorder, Thyroid Disorder Additional Past Medical History / Comment(s): Migraines; Hiatal hernia. ECZEMA, MINOR PSORIASIS. ANEMIA History of Any Multi-Drug Resistant Organisms: None Reported Past Surgical History: No Surgical Hx Reported Additional Past Surgical History / Comment(s): EGD X 3 Past Anesthesia/Blood Transfusion Reactions: No Reported Reaction Additional Past Anesthesia/Blood Transfusion Reaction / Comment(s): never had blood transfusion Past Psychological History: Anxiety Smoking Status: Vaper Past Alcohol Use History: Rare Past Drug Use History: None Reported - Past Family History Father Family Medical History: Deep Vein Thrombosis (DVT) Additional Family Medical History / Comment(s): may have had a "minor blood clot 15 years ago in his legs" Mother Family Medical History: Hypertension General Exam Limitations: no limitations General appearance: alert, in no apparent distress Head exam: Present: atraumatic, normocephalic, normal inspection Eye exam: Present: normal appearance, PERRL, EOMI. Absent: scleral icterus, conjunctival injection, periorbital swelling Respiratory exam: Present: normal lung sounds bilaterally. Absent: respiratory distress, wheezes, rales, rhonchi, stridor Cardiovascular Exam: Present: regular rate, normal rhythm, normal heart sounds. Absent: systolic murmur, diastolic murmur, rubs, gallop, clicks Neurological exam: Present: alert, oriented X3, CN II-XII intact Psychiatric exam: Present: normal affect, normal mood Skin exam: Present: warm, dry, intact, normal color. Absent: rash Course Vital Signs 11/27/22 11/27/22 12:22 14:53 Temperature 97.9 F 98.6 F Pulse Rate 87 71 Respiratory 20 18 Rate Blood Pressure 114/77 119/61 O2 Sat by Pulse 98 98 Oximetry Medical Decision Making - Medical Decision Making This is a 32-year-old female who presents to the emergency department for a headache. Was pt. sent in by a medical professional or institution? @ -No Did you speak to anyone other than the patient for history? @ -No Did you review nursing and triage notes? @ -Yes, and I agree, it is accurate with regards to the patient's symptoms. Were old charts reviewed? @ -No Differential Diagnosis? @ -Differential Headache: Migraine, tension, cluster, carbon monoxide, central venous thrombosis, [employer] temporal arteritis, acute closure glaucoma, intercranial hemorrhage, mastoiditis, sinusitis, head injury, this is not meant to be an all-inclusive list. What testing was considered but not performed? (CT, X-rays, U/S, labs)? Why? @ -None What meds were considered but not given? Why? @ -None Did you discuss the management of the patient with other professionals? @ -No Did you reconcile home meds? @ -No Was smoking cessation discussed for >3mins.? @ -No Was critical care preformed (if so, how long)? @ -No Were there social determinants of health that impacted care today? How? (Homelessness, low income, unemployed, alcoholism, drug addiction, transportation, low edu. Level, literacy, decrease access to med. care, [place] [facility], rehab)? @ -No Was there de-escalation of care discussed even if they declined? (Discuss DNR or withdrawal of care, Hospice)? @ -No What co-morbidities impacted this encounter? (DM, HTN, Smoking, COPD, CAD, Can cer, CVA, Hep., AIDS, mental health diagnosis, sleep apnea, morbid obesity)? @ -Migraines Was patient admitted / discharged? @ -Discharged. She was given a migraine cocktail consisting of IV fluids, Decadron, Toradol and, and Benadryl with resolution of symptoms. Patient overall felt much better and requested discharge home. Prescription for Toradol and Zofran provided with dosing instructions reviewed. Patient is instructed to take the Toradol with Tylenol if needed and avoid any other jcig-kcm-tfoozyr anti-inflammatories such as ibuprofen with the Toradol. Recommended she discuss other treatment options with her primary care provider if the migraines continue to be difficult to control with ilsa-shn-[id number] treatments. Undiagnosed new problem with uncertain prognosis? @ -None Drug Therapy requiring intensive monitoring for toxicity (Heparin, Nitro, Insulin, Cardizem)? @ -None Were any procedures done? @ -None Diagnosis/symptom? @ -Migraine Acute, or Chronic, or Acute on Chronic? @ -Acute Uncomplicated (without systemic symptoms) or Complicated (systemic symptoms)? @ -Uncomplicated Side effects of treatment? @ -None Exacerbation, Progression, or Severe Exacerbation] @ -Not applicable Poses a threat to life or bodily function? @ -No Return precautions reviewed in depth, the patient is instructed to return to the emergency department with any new, worsening, or concerning symptoms. Patient verbalized understanding. This case was discussed in detail with the attending ED physician, Dr. Stoner. Presentation, findings, and treatment plan discussed in detail as well. Disposition Clinical Impression: Migraine headache Disposition: HOME SELF-CARE Instructions (If sedation given, give patient instructions): Migraine Headache (ED) Additional Instructions: Return to the emergency department with any new, worsening, or concerning symptoms. You can take the Zofran up to every 8 hours as needed for nausea and vomiting. You can take the Toradol as needed for any additional headaches. Do not take this with any other tudg-wuf-wrvvpqo anti-inflammatories such as ibuprofen. Take one or the other. You may take it with Tylenol. Follow up with your primary care provider in 1-2 days. Prescriptions: Ketorolac [Toradol] 10 mg PO Q6HR PRN #12 tab PRN Reason: Pain Ondansetron Odt [Zofran Odt] 4 mg PO Q8HR PRN #15 tab PRN Reason: Nausea And Vomiting Is patient prescribed a controlled substance at d/c from ED?: No Referrals: None,Stated [Primary Care Provider] - 1-2 days
[2022-11-27 14:55] VITALS: BP 119/61; PULSE 71; RESP 18; TEMP 98.6
== END 2022-11-27 15:00 | disposition home or self-care (01) ==
LOC: EC 11:46
DX: G43.909 Migraine, unspecified, not intractable, without status migrainosus (principal); J45.909 Unspecified asthma, uncomplicated; K21.9 Gastro-esophageal reflux disease without esophagitis; E07.9 Disorder of thyroid, unspecified; F41.9 Anxiety disorder, unspecified; F17.290 Nicotine dependence, other tobacco product, uncomplicated; Z91.040 Latex allergy status; Z79.890 Hormone replacement therapy; Z79.899 Other long term (current) drug therapy
CPT/HCPCS: 99283; 96374; 96375 ×3; 96361; J1200; J1100; J2765; J1885

== ENCOUNTER 2023-04-25 23:23 | Emergency (ER) | payer OTHER ==
[2023-04-25 23:49] VITALS: RESP 18
--- NOTE | 2023-04-26 01:39 | ED ---
Upper Extremity HPI - General Chief Complaint: Extremity Injury, Upper Stated Complaint: [facility]HS - Right Pinky Injury Time Seen by Provider: 04/26/23 00:17 Source: patient, RN notes reviewed Mode of arrival: ambulatory Limitations: no limitations - History of Present Illness Initial Comments: This is a 33-year-old female who presents to the emergency department for an injury to her right pinky finger. States that yesterday at work she was helping a child down the slide. In the process her right pinky finger bent backwards and and was then slammed down on the slide. States that the child was around 60 pounds. Pain is much worse with movement. She has been taking ibuprofen and applying ice, which she states is somewhat beneficial. Denies any fevers, chills, sore throat, cough, dyspnea, chest pain, palpitations, abdominal pain, nausea, vomiting, diarrhea, back pain, or headaches. MD Complaint: Injury to:: right, finger - Related Data Home Medications Medication Instructions Recorded Confirmed Levothyroxine Sodium [Synthroid] 150 mcg PO DAILY 06/23/15 01/15/18 Hair,Skin,Nails 1 tab PO DAILY 06/25/15 01/15/18 [place]-3 Fatty Acids/Fish Oil [Fish 1 cap PO DAILY 06/25/15 01/15/18 Oil 1,000 mg Softgel] Acetaminophen [Tylenol] 650 mg PO Q4H PRN 12/31/17 01/15/18 Ferrous Sulfate [Feosol] 325 mg PO HS 12/31/17 01/15/18 Ibuprofen [Motrin Ib] 600 - 800 mg PO Q8H PRN 12/31/17 01/15/18 Loratadine [Claritin] 10 mg PO DAILY 12/31/17 01/15/18 Multivitamins, Thera [Multivitamin 1 tab PO DAILY 12/31/17 01/15/18 (formulary)] Pantoprazole Sodium [Protonix] 40 mg PO DAILY 12/31/17 01/15/18 Albuterol Inhaler [Ventolin Hfa 1 - 2 puff INHALATION RT-Q6H PRN 01/15/18 01/15/18 Inhaler] Previous Rx's Medication Instructions Recorded Docusate [Colace] 100 mg PO BID #20 capsule 01/24/18 HYDROcodone/APAP 7.5-325MG [[place] 1 tab PO Q4H PRN 3 Days #18 tab 01/24/18 7.5-325] Cephalexin [Keflex] 500 mg PO BID 7 Days #14 cap 07/26/22 Ketorolac [Toradol] 10 mg PO Q6HR PRN #12 tab 11/27/22 Ondansetron Odt [Zofran Odt] 4 mg PO Q8HR PRN #15 tab 11/27/22 Allergies Allergy/AdvReac Type Severity Reaction Status Date / Time latex Allergy Rash/Hives Verified 04/25/23 23:37 Review of Systems ROS Statement: Those systems with pertinent positive or pertinent negative responses have been documented in the HPI. ROS Other: All systems not noted in ROS Statement are negative. Past Medical History Past Medical History: Asthma, Blood Disorder, GERD/Reflux, Skin Disorder, Thyroid Disorder Additional Past Medical History / Comment(s): Migraines; Hiatal hernia. ECZEMA, MINOR PSORIASIS. ANEMIA History of Any Multi-Drug Resistant Organisms: None Reported Past Surgical History: No Surgical Hx Reported Additional Past Surgical History / Comment(s): EGD X 3 Past Anesthesia/Blood Transfusion Reactions: No Reported Reaction Additional Past Anesthesia/Blood Transfusion Reaction / Comment(s): never had blood transfusion Past Psychological History: Anxiety Smoking Status: Vaper Past Alcohol Use History: Rare Past Drug Use History: Marijuana - Past Family History Father Family Medical History: Deep Vein Thrombosis (DVT) Additional Family Medical History / Comment(s): may have had a "minor blood clot 15 years ago in his legs" Mother Family Medical History: Hypertension General Exam Limitations: no limitations General appearance: alert, in no apparent distress Head exam: Present: atraumatic, normocephalic, normal inspection Respiratory exam: Present: normal lung sounds bilaterally. Absent: respiratory distress, wheezes, rales, rhonchi, stridor Cardiovascular Exam: Present: regular rate, normal rhythm, normal heart sounds. Absent: systolic murmur, diastolic murmur, rubs, gallop, clicks Extremities exam: Present: other (There is no tenderness to palpation or overlying deformities to the right pinky finger. Range of motion is limited by pain. Capillary refill less than 1 second.) Neurological exam: Present: alert, oriented X3, CN II-XII intact Psychiatric exam: Present: normal affect, normal mood Skin exam: Present: warm, dry, intact, normal color. Absent: rash Course Vital Signs 04/25/23 04/26/23 04/26/23 23:38 02:03 02:44 Temperature 97.9 F 98.0 F Pulse Rate 63 72 65 Respiratory 18 18 18 Rate Blood Pressure 108/78 122/85 129/90 O2 Sat by Pulse 99 97 97 Oximetry Medical Decision Making - Medical Decision Making This is a 33-year-old female who presents to the emergency department for an injury to the right pinky finger. Was pt. sent in by a medical professional or institution? @ -No Did you speak to anyone other than the patient for history? @ -No Did you review nursing and triage notes? @ -Yes, and I agree, it is accurate with regards to the patient's symptoms. Were old charts reviewed? @ -No Differential Diagnosis? @ -Finger Injury: Fracture, dislocation, contusion, sprain, this is not meant to be an all- inclusive list. EKG interpreted by me (3pts min.)? @ -Not obtained X-rays interpreted by me (1pt min.)? @ -X-ray of the right pinky finger obtained. My interpretation identifies no acute fractures. CT interpreted by me (1pt min.)? @ -Not obtained U/S interpreted by me (1pt. min.)? @ -Not obtained What testing was considered but not performed? (CT, X-rays, U/S, labs)? Why? @ -None What meds were considered but not given? Why? @ -None Did you discuss the management of the patient with other professionals? @ -No Did you reconcile home meds? @ -No Was smoking cessation discussed for >3mins.? @ -No Was critical care preformed (if so, how long)? @ -No Were there social determinants of health that impacted care today? How? (Homelessness, low income, unemployed, alcoholism, drug addiction, transportation, low edu. Level, literacy, decrease access to med. care, correction, rehab)? @ -No Was there de-escalation of care discussed even if they declined? (Discuss DNR or withdrawal of care, Hospice)? @ -No What co-morbidities impacted this encounter? (DM, HTN, Smoking, COPD, CAD, Cancer, CVA, Hep., AIDS, mental health diagnosis, sleep apnea, morbid obesity)? @ -None Was patient admitted / discharged? @ -Discharged. X-ray of the right pinky finger obtained revealing no acute process. Advised the patient that this is likely a sprain. Advised alternating with ibuprofen and Tylenol as needed for pain relief and applying ice for 10-15 minutes every 2-3 hours. She does have a finger splint at home. Advised she can use this as needed as well for additional support. Undiagnosed new problem with uncertain prognosis? @ -None Drug Therapy requiring intensive monitoring for toxicity (Heparin, Nitro, Insul in, Cardizem)? @ -None Were any procedures done? @ -None Diagnosis/symptom? @ -Sprain of right fifth finger Acute, or Chronic, or Acute on Chronic? @ -Acute Uncomplicated (without systemic symptoms) or Complicated (systemic symptoms)? @ -Uncomplicated Side effects of treatment? @ -None Exacerbation, Progression, or Severe Exacerbation] @ -Not applicable Poses a threat to life or bodily function? @ -No Return precautions reviewed in depth, the patient is instructed to return to the emergency department with any new, worsening, or concerning symptoms. Patient verbalized understanding. This case was discussed in detail with the attending ED physician, Dr. Moore. Presentation, findings, and treatment plan discussed in detail as well. - Radiology Data Radiology results: report reviewed, image reviewed Disposition Clinical Impression: Sprain of right little finger Disposition: HOME SELF-CARE Instructions (If sedation given, give patient instructions): Finger Sprain (ED) Additional Instructions: Return to the emergency department with any new, worsening, or concerning symptoms. Alternate with ibuprofen and Tylenol as needed for pain relief. Apply ice as well and use the finger splint as needed. Follow up with your primary care provider in 1-2 days. Is patient prescribed a controlled substance at d/c from ED?: No Referrals: None,Stated [Primary Care Provider] - 1-2 days
--- NOTE | 2023-04-26 02:19 | XR ---
EXAM: XR Right Hand Complete, 3 or More Views CLINICAL HISTORY: ITS.REASON XR Reason: pain TECHNIQUE: Frontal, lateral and oblique views of the right hand. COMPARISON: No relevant prior studies available. FINDINGS: Bones/joints: Unremarkable. No acute fracture. No dislocation. Soft tissues: Unremarkable. No radiopaque foreign body. IMPRESSION: Normal right hand x-rays.
[2023-04-26 02:53] VITALS: BP 129/90; PULSE 65; TEMP 98
== END 2023-04-26 02:45 | disposition home or self-care (01) ==
LOC: EC 23:23
DX: S63.616A Unspecified sprain of right little finger, initial encounter (principal); J45.909 Unspecified asthma, uncomplicated; K21.9 Gastro-esophageal reflux disease without esophagitis; E07.9 Disorder of thyroid, unspecified; F41.9 Anxiety disorder, unspecified; F17.290 Nicotine dependence, other tobacco product, uncomplicated; F12.90 Cannabis use, unspecified, uncomplicated; Z91.040 Latex allergy status; Z79.890 Hormone replacement therapy; Z79.899 Other long term (current) drug therapy; X50.9XXA Other and unspecified overexertion or strenuous movements or postures, initial encounter; Y99.0 Civilian activity done for income or pay
CPT/HCPCS: 99283

== ENCOUNTER 2023-06-06 16:29 | Emergency (ER) | payer OTHER ==
[2023-06-06] MEDS ORDERED: SODIUM CHLORIDE 0.9% 1,000 ML IV STA (16:55)
[2023-06-06] MEDS ORDERED: ONDANSETRON 4 MG/2 ML VIAL IVP STA (16:55)
[2023-06-06 17:13] VITALS: RESP 18; TEMP 98.1
[2023-06-06 17:47] LABS: Basophils % (A) 0 %; Eosinophils % (A) 0 %; HCT 40.4 % (34.0-46.0); HGB 13.3 gm/dL (11.4-16.0); Lymphocytes # (A) 1.5 k/uL (1.0-4.8); Lymphocytes % (A) 19 %; MCH 27.4 pg (25.0-35.0); MCHC 32.8 g/dL (31.0-37.0); MCV 83.4 fL (80.0-100.0); Mean Platelet Volume 7.7; Monocytes # (A) 0.6 k/uL (0-1.0); Monocytes % (A) 7 %; Neutrophils # (A) 5.6 k/uL (1.3-7.7); Neutrophils % (A) 71 %; Platelet Count 319 k/uL (150-450); RBC 4.85 m/uL (3.80-5.40); RDW 14.2 % (11.5-15.5); WBC 7.9 k/uL (3.8-10.6)
[2023-06-06 17:49] LABS: ALT 22 U/L (4-34); AST 26 U/L (14-36); African American GFR (CKD) >90 (>60 ml/min/1.73 sqM); Alkaline Phosphatase 52 U/L (38-126); Amylase 33 U/L (30-110); Anion Gap 10 mmol/L; Blood Urea Nitrogen 15 mg/dL (7-17); Carbon Dioxide 24 mmol/L (22-30); Chloride 102 mmol/L (98-107); Glucose 83 mg/dL (74-99); Lipase 57 U/L (23-300); Non-African American GFR(CKD) >90 (>60 ml/min/1.73 sqM); Sodium 136 mmol/L (137-145); Total Bilirubin 0.6 mg/dL (0.2-1.3); Total Protein 6.7 g/dL (6.3-8.2)
--- NOTE | 2023-06-06 18:27 | ED ---
General Adult HPI - General Chief complaint: Nausea/Vomiting/Diarrhea Stated complaint: diarrhea,dehydration Time Seen by Provider: 06/06/23 16:40 Source: patient Mode of arrival: ambulatory Limitations: no limitations - History of Present Illness Initial comments: 23-year-old female presenting with chief complaint of nausea vomiting and diarrhea. Symptoms started yesterday. Patient admits to occasional diffuse cramping abdominal pain, no localized pain and no pain at this time. No dysuria, hematuria, flank pain. No hematochezia, melena, hematemesis. Patient states that she had a fever last night which dissipated without Motrin or Tylenol. No URI like symptoms. - Related Data Home Medications Medication Instructions Recorded Confirmed Levothyroxine Sodium [Synthroid] 150 mcg PO DAILY 06/23/15 01/15/18 Hair,Skin,Nails 1 tab PO DAILY 06/25/15 01/15/18 [place]-3 Fatty Acids/Fish Oil [Fish 1 cap PO DAILY 06/25/15 01/15/18 Oil 1,000 mg Softgel] Acetaminophen [Tylenol] 650 mg PO Q4H PRN 12/31/17 01/15/18 Ferrous Sulfate [Feosol] 325 mg PO HS 12/31/17 01/15/18 Ibuprofen [Motrin Ib] 600 - 800 mg PO Q8H PRN 12/31/17 01/15/18 Loratadine [Claritin] 10 mg PO DAILY 12/31/17 01/15/18 Multivitamins, Thera [Multivitamin 1 tab PO DAILY 12/31/17 01/15/18 (formulary)] Pantoprazole Sodium [Protonix] 40 mg PO DAILY 12/31/17 01/15/18 Albuterol Inhaler [Ventolin Hfa 1 - 2 puff INHALATION RT-Q6H PRN 01/15/18 01/15/18 Inhaler] Previous Rx's Medication Instructions Recorded Docusate [Colace] 100 mg PO BID #20 capsule 01/24/18 HYDROcodone/APAP 7.5-325MG [[place] 1 tab PO Q4H PRN 3 Days #18 tab 01/24/18 7.5-325] Cephalexin [Keflex] 500 mg PO BID 7 Days #14 cap 07/26/22 Ketorolac [Toradol] 10 mg PO Q6HR PRN #12 tab 11/27/22 Ondansetron Odt [Zofran Odt] 4 mg PO Q8HR PRN #15 tab 11/27/22 Ondansetron Odt [Zofran Odt] 4 mg PO Q8HR PRN #20 tab 06/06/23 Allergies Allergy/AdvReac Type Severity Reaction Status Date / Time latex Allergy Rash/Hives Verified 06/06/23 16:36 Review of Systems ROS Statement: Those systems with pertinent positive or pertinent negative responses have been documented in the HPI. ROS Other: All systems not noted in ROS Statement are negative. Past Medical History Past Medical History: Asthma, Blood Disorder, GERD/Reflux, Skin Disorder, Thyroid Disorder Additional Past Medical History / Comment(s): Migraines; Hiatal hernia. ECZEMA, MINOR PSORIASIS. ANEMIA History of Any Multi-Drug Resistant Organisms: None Reported Past Surgical History: No Surgical Hx Reported Additional Past Surgical History / Comment(s): EGD X 3 Past Anesthesia/Blood Transfusion Reactions: No Reported Reaction Additional Past Anesthesia/Blood Transfusion Reaction / Comment(s): never had blood transfusion Past Psychological History: Anxiety Smoking Status: Vaper Past Alcohol Use History: Rare Past Drug Use History: Marijuana - Past Family History Father Family Medical History: Deep Vein Thrombosis (DVT) Additional Family Medical History / Comment(s): may have had a "minor blood clot 15 years ago in his legs" Mother Family Medical History: Hypertension General Exam Limitations: no limitations General appearance: alert, in no apparent distress Head exam: Present: atraumatic, normocephalic, normal inspection Eye exam: Present: normal appearance, EOMI Neck exam: Present: normal inspection, full ROM Respiratory exam: Present: normal lung sounds bilaterally. Absent: respiratory distress, wheezes, rales, rhonchi, stridor Cardiovascular Exam: Present: regular rate, normal rhythm, normal heart sounds. Absent: systolic murmur, diastolic murmur, rubs, gallop, clicks GI/Abdominal exam: Present: soft. Absent: distended, tenderness, guarding, rebound, rigid Neurological exam: Present: alert, oriented X3 Psychiatric exam: Present: normal affect, normal mood Skin exam: Present: warm, dry, intact, normal color. Absent: rash Course Vital Signs 06/06/23 06/06/23 16:34 20:07 Temperature 98.1 F Pulse Rate 77 72 Respiratory 18 18 Rate Blood Pressure 124/83 104/72 O2 Sat by Pulse 98 98 Oximetry Medical Decision Making - Medical Decision Making Was pt. sent in by a medical professional or institution (JAXON Jeff, QUALITY ENGINEERING MANAGER, urgent care, hospital, or assisted...) When possible be specific @ -No Did you speak to anyone other than the patient for history (EMS, parent, family, police, friend...)? What history was obtained from this source @ -No Did you review nursing and triage notes (agree or disagree)? Why? @ -I reviewed and agree with nursing and triage notes Were old charts reviewed (outside hosp., previous admission, EMS record, old EKG, old radiological studies, urgent care reports/EKG's, assisted records)? Report findings @ -No old charts were reviewed Differential Diagnosis (chest pain, altered mental status, abdominal pain women, abdominal pain men, vaginal bleeding, weakness, fever, dyspnea, syncope, headache, dizziness, GI bleed, back pain, seizure, CVA, palpatations, mental health, musculoskeletal)? @ -Differential includes gastroenteritis, UTI, pancreatitis, cholecystitis, this is not an all inclusive list EKG interpreted by me (3pts min.). @ -As above X-rays interpreted by me (1pt min.). @ -None done CT interpreted by me (1pt min.). @ -None done U/S interpreted by me (1pt. min.). @ -None done What testing was considered but not performed or refused? (CT, X-rays, U/S, labs)? Why? @ -None What meds were considered but not given or refused? Why? @ -None Did you discuss the management of the patient with other professionals (professionals i.e. JAXON Jeff, QUALITY ENGINEERING MANAGER, lab, RT, psych nurse, health care social worker, advertising clerk, teacher, admissions officer, manager case management)? Give summary @ -No Was smoking cessation discussed for >3mins.? @ -No Was critical care preformed (if so, how long)? @ -No Were there social determinants of health that impacted care today? How? (Homelessness, low income, unemployed, alcoholism, drug addiction, transportation, low edu. Level, literacy, decrease access to med. care, half-way, rehab)? @ -No Was there de-escalation of care discussed even if they declined (Discuss DNR or withdrawal of care, Hospice)? DNR status @ -No What co-morbidities impacted this encounter? (DM, HTN, Smoking, COPD, CAD, Cancer, CVA, ARF, Chemo, Hep., AIDS, mental health diagnosis, sleep apnea, morbid obesity)? @ -None Was patient admitted / discharged? Hospital course, mention meds given and route, prescriptions, significant lab abnormalities, going to OR and other pertinent info. @ -33-year-old female presenting with chief complaint of nausea and vomiting and diarrhea that started yesterday. History and physical exam were conducted. CBC and CMP are essentially unremarkable. Urine shows signs of contamination. Patient is given Zofran and fluids, on reassessment she reports improvement in her symptoms. She'll be discharged home with Zofran. Follow-up with PCP. Report back to ER with any new or worsening symptoms. Discussed return parameters and answered all questions. Patient conveyed verbal understanding and agreed to the plan. I discussed this case in detail with my attending Dr. Juan Undiagnosed new problem with uncertain prognosis? @ -No Drug Therapy requiring intensive monitoring for toxicity (Heparin, Nitro, Ins ulin, Cardizem)? @ -No Were any procedures done? @ -No Diagnosis/symptom? @ -Gastroenteritis Acute, or Chronic, or Acute on Chronic? @ -Acute Uncomplicated (without systemic symptoms) or Complicated (systemic symptoms)? @ -Uncomplicated Side effects of treatment? @ -No Exacerbation, Progression, or Severe Exacerbation? @ -No Poses a threat to life or bodily function? How? (Chest pain, [place], [place], pneumonia, PE, COPD, DKA, ARF, appy, cholecystitis, CVA, Diverticulitis, Homicidal, Suicidal, threat to staff... and all critical care pts) @ -No - Lab Data Result diagrams: 06/06/23 17:01 06/06/23 17:01 Lab Results 06/06/23 06/06/23 06/06/23 Range/Units 17:01 17: 17: WBC 7.9 (3.8-10.6) k/uL RBC 4.85 (3.80-5.40) m/uL Hgb 13.3 (11.4-16.0) gm/dL Hct 40.4 (34.0-46.0) % MCV 83.4 (80.0-100.0) fL MCH 27.4 (25.0-35.0) pg MCHC 32.8 (31.0-37.0) g/dL RDW 14.2 (11.5-15.5) % Plt Count 319 (150-450) k/uL MPV 7.7 Neutrophils % 71 % Lymphocytes % 19 % Monocytes % 7 % Eosinophils % 0 % Basophils % 0 % Neutrophils # 5.6 (1.3-7.7) k/uL Lymphocytes # 1.5 (1.0-4.8) k/uL Monocytes # 0.6 (0-1.0) k/uL Eosinophils # 0.0 (0-0.7) k/uL Basophils # 0.0 (0-0.2) k/uL Sodium 136 L (137-145) mmol/L Potassium 4.0 (3.5-5.1) mmol/L Chloride 102 (98-107) mmol/L Carbon Dioxide 24 (22-30) mmol/L Anion Gap 10 mmol/L BUN 15 (7-17) mg/dL Creatinine 0.68 (0.52-1.04) mg/dL Est GFR (CKD-EPI)AfAm >90 (>60 ml/min/1.73 sqM) Est GFR (CKD-EPI)NonAf >90 (>60 ml/min/1.73 sqM) Glucose 83 (74-99) mg/dL Calcium 9.0 (8.4-10.2) mg/dL Total Bilirubin 0.6 (0.2-1.3) mg/dL AST 26 (14-36) U/L ALT 22 (4-34) U/L Alkaline Phosphatase 52 (38-126) U/L Total Protein 6.7 (6.3-8.2) g/dL Albumin 4.0 (3.5-5.0) g/dL Amylase 33 (30-110) U/L Lipase 57 (23-300) U/L Urine Color Yellow Urine Appearance Cloudy H (Clear) Urine pH 5.5 (5.0-8.0) Ur Specific [place] 1.034 (1.001-1.035) Urine Protein Trace H (Negative) Urine Glucose (UA) Negative (Negative) Urine Ketones 2+ H (Negative) Urine Blood Moderate H (Negative) Urine Nitrite Negative (Negative) Urine Bilirubin Negative (Negative) Urine Urobilinogen 2.0 (<2.0) mg/dL Ur Leukocyte Esterase Trace H (Negative) Urine RBC 5 (0-5) /hpf Urine WBC 6 H (0-5) /hpf Ur Squamous Epith Cells 13 H (0-4) /hpf Urine Bacteria Rare H (None) /hpf Hyaline Casts 1 (0-2) /lpf Urine Mucus Moderate H (None) /hpf Disposition Clinical Impression: Gastroenteritis Disposition: HOME SELF-CARE Condition: Good Instructions (If sedation given, give patient instructions): Acute Nausea and Vomiting (ED), Acute Diarrhea (ED) Additional Instructions: Follow-up with PCP. Report back to ER with any new or worsening symptoms. Prescriptions: Ondansetron Odt [Zofran Odt] 4 mg PO Q8HR PRN #20 tab PRN Reason: Nausea Is patient prescribed a controlled substance at d/c from ED?: No Referrals: None,Stated [Primary Care Provider] - 1-2 days Time of Disposition: 19:37
[2023-06-06 18:42] LABS: Appearance,Urine Cloudy (Clear); Bacteria,Urine Rare /hpf; Bilirubin,Urine Negative (Negative); Blood,Urine Moderate (Negative); Color,Urine Yellow; Glucose,Urine (UA) Negative (Negative); Hyaline Casts,Urine 1 /lpf (0-2); Ketones,Urine 2+ (Negative); Leukocyte Esterase,Urine Trace (Negative); Mucus,Urine Moderate /hpf; Nitrite,Urine Negative (Negative); PH, Urine 5.5 (5.0-8.0); Protein,Urine Trace (Negative); RBC,Urine 5 /hpf (0-5); Specific Gravity,Urine 1.034 (1.001-1.035); Squamous Epithelial Cell,Urine 13 /hpf (0-4); WBC,Urine 6 /hpf (0-5)
[2023-06-06 20:13] VITALS: BP 104/72; PULSE 72
== END 2023-06-06 20:08 | disposition home or self-care (01) ==
LOC: EC 16:29
DX: K52.9 Noninfective gastroenteritis and colitis, unspecified (principal); J45.909 Unspecified asthma, uncomplicated; E07.9 Disorder of thyroid, unspecified; K21.9 Gastro-esophageal reflux disease without esophagitis; F41.9 Anxiety disorder, unspecified; F17.290 Nicotine dependence, other tobacco product, uncomplicated; F12.90 Cannabis use, unspecified, uncomplicated; Z91.040 Latex allergy status; Z79.890 Hormone replacement therapy; Z79.899 Other long term (current) drug therapy
CPT/HCPCS: 36415; 80053; 82150; 83690; 85025; 81001; 99284; 96374; 96361 ×2; J2405

== ENCOUNTER 2024-05-01 17:51 | Emergency (ER) | payer SELFPAY ==
[2024-05-01 18:52] VITALS: TEMP 98.4
--- NOTE | 2024-05-01 20:40 | ED ---
Abdominal Pain HPI - General Chief Complaint: Abdominal Pain Stated Complaint: abd pain Time Seen by Provider: 05/01/24 20:39 Source: patient, RN notes reviewed Mode of arrival: ambulatory Limitations: no limitations - History of Present Illness Initial Comments: 34-year-old male presented to ER with a chief complaint of abdominal pain. Patient states yesterday she started to experience umbilical abdominal pain. She states it feels like there is a "bulge just above her bellybutton". She denies any injuries or traumas. Denies any fevers or chills. Denies any constipation, diarrhea, urinary complaints, nausea or vomiting. She has tried taking [id number] ibuprofen without relief. Patient does state a cholecystectomy no other abdominal surgeries. - Related Data Home Medications Medication Instructions Recorded Confirmed Levothyroxine Sodium [Synthroid] 150 mcg PO DAILY 06/23/15 01/15/18 Hair,Skin,Nails 1 tab PO DAILY 06/25/15 01/15/18 [place]-3 Fatty Acids/Fish Oil [Fish 1 cap PO DAILY 06/25/15 01/15/18 Oil 1,000 mg Softgel] Acetaminophen [Tylenol] 650 mg PO Q4H PRN 12/31/17 01/15/18 Ferrous Sulfate [Feosol] 325 mg PO HS 12/31/17 01/15/18 Ibuprofen [Motrin Ib] 600 - 800 mg PO Q8H PRN 12/31/17 01/15/18 Loratadine [Claritin] 10 mg PO DAILY 12/31/17 01/15/18 Multivitamins, Thera [Multivitamin 1 tab PO DAILY 12/31/17 01/15/18 (formulary)] Pantoprazole Sodium [Protonix] 40 mg PO DAILY 12/31/17 01/15/18 Albuterol Inhaler [Ventolin Hfa 1 - 2 puff INHALATION RT-Q6H PRN 01/15/18 01/15/18 Inhaler] Previous Rx's Medication Instructions Recorded Docusate [Colace] 100 mg PO BID #20 capsule 01/24/18 HYDROcodone/APAP 7.5-325MG [[place] 1 tab PO Q4H PRN 3 Days #18 tab 01/24/18 7.5-325] Cephalexin [Keflex] 500 mg PO BID 7 Days #14 cap 07/26/22 Ketorolac [Toradol] 10 mg PO Q6HR PRN #12 tab 11/27/22 Ondansetron Odt [Zofran Odt] 4 mg PO Q8HR PRN #15 tab 11/27/22 Ondansetron Odt [Zofran Odt] 4 mg PO Q8HR PRN #20 tab 06/06/23 Cephalexin [Keflex] 500 mg PO Q12HR 7 Days #14 cap 05/02/24 Allergies Allergy/AdvReac Type Severity Reaction Status Date / Time latex Allergy Rash/Hives Verified 06/06/23 16:36 Review of Systems ROS Statement: Those systems with pertinent positive or pertinent negative responses have been documented in the HPI. ROS Other: All systems not noted in ROS Statement are negative. Past Medical History Past Medical History: Asthma, Blood Disorder, GERD/Reflux, Skin Disorder, Thyroid Disorder Additional Past Medical History / Comment(s): Migraines; Hiatal hernia. ECZEMA, MINOR PSORIASIS. ANEMIA History of Any Multi-Drug Resistant Organisms: None Reported Past Surgical History: No Surgical Hx Reported Additional Past Surgical History / Comment(s): EGD X 3 Past Anesthesia/Blood Transfusion Reactions: No Reported Reaction Additional Past Anesthesia/Blood Transfusion Reaction / Comment(s): never had blood transfusion Past Psychological History: Anxiety Smoking Status: Vaper Past Alcohol Use History: Rare Past Drug Use History: Marijuana - Past Family History Father Family Medical History: Deep Vein Thrombosis (DVT) Additional Family Medical History / Comment(s): may have had a "minor blood clot 15 years ago in his legs" Mother Family Medical History: Hypertension General Exam Limitations: no limitations General appearance: alert, in no apparent distress Respiratory exam: Present: normal lung sounds bilaterally. Absent: respiratory distress, wheezes, rales, rhonchi, stridor Cardiovascular Exam: Present: regular rate, normal rhythm, normal heart sounds. Absent: systolic murmur, diastolic murmur, rubs, gallop, clicks GI/Abdominal exam: Present: soft, tenderness (Superior to umbilicus), normal bowel sounds Extremities exam: Present: normal inspection, full ROM, normal capillary refill. Absent: tenderness, pedal edema, joint swelling, calf tenderness Neurological exam: Present: alert, oriented X3, CN II-XII intact Skin exam: Present: warm, dry, intact, normal color. Absent: rash Course Vital Signs 10/10/24 10/11/24 18:48 00:42 Temperature 98.4 F Pulse Rate 75 78 Respiratory 18 15 Rate Blood Pressure 111/67 128/88 O2 Sat by Pulse 100 97 Oximetry Medical Decision Making - Medical Decision Making Was pt. sent in by a medical professional or institution (JAXON Jeff, TOOTH GRINDER, urgent care, hospital, or retirement...) When possible be specific @ -No Did you speak to anyone other than the patient for history (EMS, parent, family, police, friend...)? What history was obtained from this source @ -No Did you review nursing and triage notes (agree or disagree)? Why? @ -I reviewed and agree with nursing and triage notes Were old charts reviewed (outside hosp., previous admission, EMS record, old EKG, old radiological studies, urgent care reports/EKG's, retirement records)? Report findings @ -No old charts were reviewed Differential Diagnosis (chest pain, altered mental status, abdominal pain women, abdominal pain men, vaginal bleeding, weakness, fever, dyspnea, syncope, headache, dizziness, GI bleed, back pain, seizure, CVA, palpatations, mental health, musculoskeletal)? @ -Differential Abdominal Pain Women: Appendicitis, Cholecystitis, diverticulosis, ischemic bowel, pancreatitis, hepatitis, UTI, gastroenteritis, AAA, incarcerated hernia, bowel obstruction, constipation, inflammatory bowel, hepatitis, peptic ulcer disease, splenic infarction, perforated viscus, vulvitis, ovarian torsion, PID, kidney stone, placenta abruption, this is not meant to be an all-inclusive list EKG interpreted by me (3pts min.). @ -None done X-rays interpreted by me (1pt min.). @ -None done CT interpreted by me (1pt min.). @ -CT abdomen pelvis showing skin thickening surrounding the umbilicus concerning of umbilical cellulitis. No fluid collection or abscess. No subcutaneous air. Hepatic steatosis. Cholecystectomy. U/S interpreted by me (1pt. min.). @ -None done What testing was considered but not performed or refused? (CT, X-rays, U/S, labs)? Why? @ -None What meds were considered but not given or refused? Why? @ -None Did you discuss the management of the patient with other professionals (professionals i.e. JAXON Jeff, TOOTH GRINDER, lab, RT, psych nurse, manager social work, eyeletter, teacher, probation and parole officer, pillowcase cleaner)? Give summary @ -No Was smoking cessation discussed for >3mins.? @ -I discussed smoking cessation for greater than 3 minutes. The risk of smoking were discussed with the patient including but not limited to risks of cancer, stroke, coronary artery disease and COPD. Also discussed with patient w ere multiple methods of quitting smoking. Lastly we discussed the financial cost of smoking. Was critical care preformed (if so, how long)? @ -No Were there social determinants of health that impacted care today? How? (Homelessness, low income, unemployed, alcoholism, drug addiction, transportatio n, low edu. Level, literacy, decrease access to med. care, long term, rehab)? @ -No Was there de-escalation of care discussed even if they declined (Discuss DNR or withdrawal of care, Hospice)? DNR status @ -No What co-morbidities impacted this encounter? (DM, HTN, Smoking, COPD, CAD, Cancer, CVA, ARF, Chemo, Hep., AIDS, mental health diagnosis, sleep apnea, morbid obesity)? @ -Obese Was patient admitted / discharged? Hospital course, mention meds given and route, prescriptions, significant lab abnormalities, going to OR and other pertinent info. @ -Discharge. 34-year-old female presenting to the ER with a chief complaint of periumbilical abdominal pain. History and physical exam completed. Vitals within normal limits. Patient in no signs of acute distress. Tenderness superior to umbilicus. No overlying skin changes. Normal bowel sounds. No rebound or guarding. Laboratory studies obtained showing a leukocytosis of 13.6 with a left shift which is likely reactive patient smoking habits. Urinalysis showing small blood with moderate leukocyte esterases. 15 WBCs with 8 epithelial cells. Urine hCG negative. CT abdomen pelvis performed to rule out appendicitis due to periumbilical pain. CT is showing umbilical cellulitis. Patient will be started on Keflex. Patient received IV fluids and Toradol for symptom control in the ER. Upon reevaluation, patient resting comfortably in exam room no signs of acute distress. Results discussed with patient, all questions answered. Advise close follow-up with PCP, referral given. Strict return parameters discussed. Patient discharged stable condition. Patient verbally expressed understanding agree with care plan. Case discussed with ED attending Dr. Miramontes. Undiagnosed new problem with uncertain prognosis? @ -No Drug Therapy requiring intensive monitoring for toxicity (Heparin, Nitro, Insulin, Cardizem)? @ -No Were any procedures done? @ -No Diagnosis/symptom? @ -Umbilical cellulitis Acute, or Chronic, or Acute on Chronic? @ -Acute Uncomplicated (without systemic symptoms) or Complicated (systemic symptoms)? @ -Uncomplicated Side effects of treatment? @ -No Exacerbation, Progression, or Severe Exacerbation? @ -No Poses a threat to life or bodily function? How? (Chest pain, [place], [place], pneumonia, PE, COPD, DKA, ARF, appy, cholecystitis, CVA, Diverticulitis, Homicidal, Suicidal, threat to staff... and all critical care pts) @ -No - Lab Data Result diagrams: 05/01/24 21:08 05/01/24 21:08 Lab Results 05/01/24 05/01/24 05/01/24 Range/Units 21:08 21:08 21:08 WBC 13.6 H (3.8-10.6) k/uL RBC 4.99 (3.80-5.40) m/uL Hgb 13.5 (11.4-16.0) gm/dL Hct 42.6 (34.0-46.0) % MCV 85.3 (80.0-100.0) fL MCH 27.0 (25.0-35.0) pg MCHC 31.7 (31.0-37.0) g/dL RDW 13.5 (11.5-15.5) % Plt Count 392 (150-450) k/uL MPV 7.0 Neutrophils % 75 % Lymphocytes % 18 % Monocytes % 4 % Eosinophils % 2 % Basophils % 0 % Neutrophils # 10.2 H (1.3-7.7) k/uL Lymphocytes # 2.4 (1.0-4.8) k/uL Monocytes # 0.5 (0-1.0) k/uL Eosinophils # 0.2 (0-0.7) k/uL Basophils # 0.1 (0-0.2) k/uL Sodium 137 (137-145) mmol/L Potassium 4.2 (3.5-5.1) mmol/L Chloride 103 (98-107) mmol/L Carbon Dioxide 24 (22-30) mmol/L Anion Gap 10 mmol/L BUN 18 H (7-17) mg/dL Creatinine 0.70 (0.52-1.04) mg/dL Est GFR (CKD-EPI)AfAm >90 (>60 ml/min/1.73 sqM) Est GFR (CKD-EPI)NonAf >90 (>60 ml/min/1.73 sqM) Glucose 90 (74-99) mg/dL Plasma Lactic Acid Abhilash 0.8 (0.7-2.0) mmol/L Calcium 9.8 (8.4-10.2) mg/dL Total Bilirubin 0.7 (0.2-1.3) mg/dL AST 29 (14-36) U/L ALT 26 (4-34) U/L Alkaline Phosphatase 56 (38-126) U/L Total Protein 7.2 (6.3-8.2) g/dL Albumin 4.3 (3.5-5.0) g/dL Amylase 41 (30-110) U/L Lipase 89 (23-300) U/L Urine Color Urine Appearance (Clear) Urine pH (5.0-8.0) Ur Specific [place] (1.001-1.035) Urine Protein (Negative) Urine Glucose (UA) (Negative) Urine Ketones (Negative) Urine Blood (Negative) Urine Nitrite (Negative) Urine Bilirubin (Negative) Urine Urobilinogen (<2.0) mg/dL Ur Leukocyte Esterase (Negative) Urine RBC (0-5) /hpf Urine WBC (0-5) /hpf Ur Squamous Epith Cells (0-4) /hpf Urine Bacteria (None) /hpf Hyaline Casts (0-2) /lpf Urine Mucus (None) /hpf Urine HCG, Qual (Not Detectd) 05/01/24 05/01/24 Range/Units 21:22 21:22 WBC (3.8-10.6) k/uL RBC (3.80-5.40) m/uL Hgb (11.4-16.0) gm/dL Hct (34.0-46.0) % MCV (80.0-100.0) fL MCH (25.0-35.0) pg MCHC (31.0-37.0) g/dL RDW (11.5-15.5) % Plt Count (150-450) k/uL MPV Neutrophils % % Lymphocytes % % Monocytes % % Eosinophils % % Basophils % % Neutrophils # (1.3-7.7) k/uL Lymphocytes # (1.0-4.8) k/uL Monocytes # (0-1.0) k/uL Eosinophils # (0-0.7) k/uL Basophils # (0-0.2) k/uL Sodium (137-145) mmol/L Potassium (3.5-5.1) mmol/L Chloride (98-107) mmol/L Carbon Dioxide (22-30) mmol/L Anion Gap mmol/L BUN (7-17) mg/dL Creatinine (0.52-1.04) mg/dL Est GFR (CKD-EPI)AfAm (>60 ml/min/1.73 sqM) Est GFR (CKD-EPI)NonAf (>60 ml/min/1.73 sqM) Glucose (74-99) mg/dL Plasma Lactic Acid Abhilash (0.7-2.0) mmol/L Calcium (8.4-10.2) mg/dL Total Bilirubin (0.2-1.3) mg/dL AST (14-36) U/L ALT (4-34) U/L Alkaline Phosphatase (38-126) U/L Total Protein (6.3-8.2) g/dL Albumin (3.5-5.0) g/dL Amylase (30-110) U/L Lipase (23-300) U/L Urine Color Light Yellow Urine Appearance Cloudy H (Clear) Urine pH 5.5 (5.0-8.0) Ur Specific [place] 1.025 (1.001-1.035) Urine Protein Negative (Negative) Urine Glucose (UA) Negative (Negative) Urine Ketones Negative (Negative) Urine Blood Small H (Negative) Urine Nitrite Negative (Negative) Urine Bilirubin Negative (Negative) Urine Urobilinogen <2.0 (<2.0) mg/dL Ur Leukocyte Esterase Moderate H (Negative) Urine RBC 2 (0-5) /hpf Urine WBC 15 H (0-5) /hpf Ur Squamous Epith Cells 8 H (0-4) /hpf Urine Bacteria Rare H (None) /hpf Hyaline Casts 1 (0-2) /lpf Urine Mucus Rare H (None) /hpf Urine HCG, Qual Not Detected (Not Detectd) - Radiology Data Radiology results: report reviewed, image reviewed Disposition Clinical Impression: Cellulitis of umbilicus Disposition: HOME SELF-CARE Condition: Stable Instructions (If sedation given, give patient instructions): Cellulitis (ED) Additional Instructions: Complete full course of biotics. Follow-up with PCP in the next 1 to 2 days. Return to ER for any new or worsening concerns. Prescriptions: Cephalexin [Keflex] 500 mg PO Q12HR 7 Days #14 cap Is patient prescribed a controlled substance at d/c from ED?: No Referrals: None,Stated [Primary Care Provider] - 1-2 days Forms: Area PCPs Time of Disposition: 00:26
[2024-05-01] MEDS: SODIUM CHLORIDE 0.9% 1,000 ML IV STA (21:10)
[2024-05-01] MEDS: KETOROLAC 15 MG/ML 1 ML VIAL IVP STA (21:11)
[2024-05-01 21:23] LABS: Basophils # (A) 0.1 k/uL (0-0.2); Basophils % (A) 0 %; Eosinophils # (A) 0.2 k/uL (0-0.7); Eosinophils % (A) 2 %; HCT 42.6 % (34.0-46.0); HGB 13.5 gm/dL (11.4-16.0); Lymphocytes # (A) 2.4 k/uL (1.0-4.8); Lymphocytes % (A) 18 %; MCHC 31.7 g/dL (31.0-37.0); MCV 85.3 fL (80.0-100.0); Monocytes # (A) 0.5 k/uL (0-1.0); Monocytes % (A) 4 %; Neutrophils # (A) 10.2 k/uL (1.3-7.7); Neutrophils % (A) 75 %; Platelet Count 392 k/uL (150-450); RBC 4.99 m/uL (3.80-5.40); RDW 13.5 % (11.5-15.5); WBC 13.6 k/uL (3.8-10.6)
[2024-05-01 21:39] LABS: ALT 26 U/L (4-34); AST 29 U/L (14-36); African American GFR (CKD) >90 (>60 ml/min/1.73 sqM); Albumin 4.3 g/dL (3.5-5.0); Alkaline Phosphatase 56 U/L (38-126); Amylase 41 U/L (30-110); Anion Gap 10 mmol/L; Blood Urea Nitrogen 18 mg/dL (7-17); Calcium 9.8 mg/dL (8.4-10.2); Carbon Dioxide 24 mmol/L (22-30); Chloride 103 mmol/L (98-107); Glucose 90 mg/dL (74-99); Lipase 89 U/L (23-300); Non-African American GFR(CKD) >90 (>60 ml/min/1.73 sqM); Potassium 4.2 mmol/L (3.5-5.1); Sodium 137 mmol/L (137-145); Total Bilirubin 0.7 mg/dL (0.2-1.3); Total Protein 7.2 g/dL (6.3-8.2)
[2024-05-01 22:12] LABS: Appearance,Urine Cloudy (Clear); Bacteria,Urine Rare /hpf; Bilirubin,Urine Negative (Negative); Blood,Urine Small (Negative); Color,Urine Light Yellow; Glucose,Urine (UA) Negative (Negative); Hyaline Casts,Urine 1 /lpf (0-2); Ketones,Urine Negative (Negative); Leukocyte Esterase,Urine Moderate (Negative); Mucus,Urine Rare /hpf; Nitrite,Urine Negative (Negative); PH, Urine 5.5 (5.0-8.0); Protein,Urine Negative (Negative); RBC,Urine 2 /hpf (0-5); Specific Gravity,Urine 1.025 (1.001-1.035); Squamous Epithelial Cell,Urine 8 /hpf (0-4); Urobilinogen,Urine <2.0 mg/dL (<2.0); WBC,Urine 15 /hpf (0-5)
--- NOTE | 2024-05-02 00:11 | CT ---
EXAM: CT Abdomen and Pelvis With Intravenous Contrast CLINICAL HISTORY: ITS.REASON CT Reason: periumbilical abd pain TECHNIQUE: Axial computed tomography images of the abdomen and pelvis with intravenous contrast. CTDI is 55.1 mGy and DLP is 2760.7 mGy-cm. This CT exam was performed using one or more of the following dose reduction techniques: automated exposure control, adjustment of the mA and/or kV according to patient size, and/or use of iterative reconstruction technique. COMPARISON: No relevant prior studies available. FINDINGS: Lung bases: Unremarkable. No mass. No consolidation. ABDOMEN: Liver: Hepatic steatosis. Gallbladder and bile ducts: Cholecystectomy. No ductal dilation. Pancreas: Unremarkable. No mass. No ductal dilation. Spleen: Unremarkable. No splenomegaly. Adrenals: Unremarkable. No mass. Kidneys and ureters: Unremarkable. No solid mass. No hydronephrosis. Stomach and bowel: Unremarkable. No obstruction. No mucosal thickening. PELVIS: Appendix: No findings to suggest acute appendicitis. Bladder: Unremarkable. No mass. Reproductive: Unremarkable as visualized. ABDOMEN and PELVIS: Intraperitoneal space: Unremarkable. No free air. No significant fluid collection. Bones/joints: No acute fracture. No dislocation. Soft tissues: Skin thickening surrounding the umbilicus, concerning for umbilical cellulitis. No fluid collection or abscess. No subcutaneous air. Vasculature: Unremarkable. No abdominal aortic aneurysm. Lymph nodes: Unremarkable. No enlarged lymph nodes. IMPRESSION: 1. Skin thickening surrounding the umbilicus, concerning for umbilical cellulitis. No fluid collection or abscess. No subcutaneous air. 2. Hepatic steatosis. 3. Cholecystectomy.
[2024-05-02 00:43] VITALS: BP 128/88; PULSE 78; RESP 15
== END 2024-05-02 00:43 | disposition home or self-care (01) ==
LOC: EC 17:51
CPT/HCPCS: 36415; 74177; 80053; 81001; 81025; 82150; 83605; 83690; 85025; 96360; 96361; 99284; 99406

== ENCOUNTER 2024-05-04 17:54 | Emergency (ER) | payer SELFPAY ==
[2024-05-04 18:00] VITALS: TEMP 99.1
--- NOTE | 2024-05-04 18:17 | ED ---
Skin/Abscess/FB HPI - General Chief complaint: Skin/Abscess/Foreign Body Stated complaint: abd pain Time Seen by Provider: 05/04/24 18:16 Source: patient, RN notes reviewed, old records reviewed Mode of arrival: ambulatory Limitations: no limitations - History of Present Illness Initial comments: 34-year-old female presented to the ER with a chief complaint of umbilical drainage. Patient was seen here 2 days prior for similar complaint and was started on Keflex due to umbilical cellulitis. She states around 30 to 40 minutes prior to arrival she was sitting at home with a heating pad on her abdomen when she noticed a discharge from her bellybutton. She states it was bloody and pearly in color. She has taken 5 doses of Keflex at this time. She denies any fevers but does admit to chills. Does report diarrhea but states that she believes this is from antibiotics. Denies any other complaints. - Related Data Home Medications Medication Instructions Recorded Confirmed Levothyroxine Sodium [Synthroid] 150 mcg PO DAILY 06/23/15 01/15/18 Hair,Skin,Nails 1 tab PO DAILY 06/25/15 01/15/18 [place]-3 Fatty Acids/Fish Oil [Fish 1 cap PO DAILY 06/25/15 01/15/18 Oil 1,000 mg Softgel] Acetaminophen [Tylenol] 650 mg PO Q4H PRN 12/31/17 01/15/18 Ferrous Sulfate [Feosol] 325 mg PO HS 12/31/17 01/15/18 Ibuprofen [Motrin Ib] 600 - 800 mg PO Q8H PRN 12/31/17 01/15/18 Loratadine [Claritin] 10 mg PO DAILY 12/31/17 01/15/18 Multivitamins, Thera [Multivitamin 1 tab PO DAILY 12/31/17 01/15/18 (formulary)] Pantoprazole Sodium [Protonix] 40 mg PO DAILY 12/31/17 01/15/18 Albuterol Inhaler [Ventolin Hfa 1 - 2 puff INHALATION RT-Q6H PRN 01/15/18 01/15/18 Inhaler] Previous Rx's Medication Instructions Recorded Docusate [Colace] 100 mg PO BID #20 capsule 01/24/18 HYDROcodone/APAP 7.5-325MG [[place] 1 tab PO Q4H PRN 3 Days #18 tab 07/05/18 7.5-325] Cephalexin [Keflex] 500 mg PO BID 7 Days #14 cap 07/26/22 Ketorolac [Toradol] 10 mg PO Q6HR PRN #12 tab 11/27/22 Ondansetron Odt [Zofran Odt] 4 mg PO Q8HR PRN #15 tab 11/27/22 Ondansetron Odt [Zofran Odt] 4 mg PO Q8HR PRN #20 tab 06/06/23 Cephalexin [Keflex] 500 mg PO Q12HR 7 Days #14 cap 05/02/24 Fluconazole [Diflucan] 150 mg PO ONCE #2 tab 05/04/24 Nystatin 100,000 Unit/gm Powd 1 applic TOPICAL BID #15 gm 05/04/24 [Mycostatin Powder] Sulfamethoxazole/Trimethoprim 1 each PO BID 7 Days #14 tablet 05/04/24 [Bactrim DS 800-160 mg] Allergies Allergy/AdvReac Type Severity Reaction Status Date / Time latex Allergy Rash/Hives Verified 05/04/24 17:57 Review of Systems ROS Statement: Those systems with pertinent positive or pertinent negative responses have been documented in the HPI. ROS Other: All systems not noted in ROS Statement are negative. Past Medical History Past Medical History: Asthma, Blood Disorder, GERD/Reflux, Skin Disorder, Thyroid Disorder Additional Past Medical History / Comment(s): Migraines; Hiatal hernia. ECZEMA, MINOR PSORIASIS. ANEMIA History of Any Multi-Drug Resistant Organisms: None Reported Past Surgical History: No Surgical Hx Reported Additional Past Surgical History / Comment(s): EGD X 3 Past Anesthesia/Blood Transfusion Reactions: No Reported Reaction Additional Past Anesthesia/Blood Transfusion Reaction / Comment(s): never had blood transfusion Past Psychological History: Anxiety Smoking Status: Vaper Past Alcohol Use History: Rare Past Drug Use History: Marijuana - Past Family History Father Family Medical History: Deep Vein Thrombosis (DVT) Additional Family Medical History / Comment(s): may have had a "minor blood clot 15 years ago in his legs" Mother Family Medical History: Hypertension General Exam Limitations: no limitations General appearance: alert, in no apparent distress Respiratory exam: Present: normal lung sounds bilaterally. Absent: respiratory distress, wheezes, rales, rhonchi, stridor Cardiovascular Exam: Present: regular rate, normal rhythm, normal heart sounds. Absent: systolic murmur, diastolic murmur, rubs, gallop, clicks GI/Abdominal exam: Present: soft, tenderness (Periumbilical. There is purulent drainage noted from umbilicus.), normal bowel sounds. Absent: distended, guarding, rebound, rigid Neurological exam: Present: alert, oriented X3, CN II-XII intact Skin exam: Present: warm, dry, intact, normal color. Absent: rash Course Vital Signs 05/04/24 05/04/24 17:57 18:41 Temperature 99.1 F Pulse Rate 89 90 Respiratory 20 18 Rate Blood Pressure 152/98 149/100 O2 Sat by Pulse 98 99 Oximetry Medical Decision Making - Medical Decision Making Was pt. sent in by a medical professional or institution (, PA, CRUISE STAFF MEMBER, urgent care, hospital, or penitentiary...) When possible be specific @ -No Did you speak to anyone other than the patient for history (EMS, parent, family, police, friend...)? What history was obtained from this source @ -, at bedside, aiding in HPI and past medical history. Did you review nursing and triage notes (agree or disagree)? Why? @ -I reviewed and agree with nursing and triage notes Were old charts reviewed (outside hosp., previous admission, EMS record, old EKG, old radiological studies, urgent care reports/EKG's, penitentiary records)? Report findings @ -Yes reviewed ER visit from 05-02-2024. Patient diagnosed with umbilical cellulitis and started on Keflex. Differential Diagnosis (chest pain, altered mental status, abdominal pain women, abdominal pain men, vaginal bleeding, weakness, fever, dyspnea, syncope, hea dache, dizziness, GI bleed, back pain, seizure, CVA, palpatations, mental health, musculoskeletal)? @ -Differential Abdominal Pain Women: Appendicitis, Cholecystitis, diverticulosis, ischemic bowel, pancreatitis, hepatitis, UTI, gastroenteritis, AAA, incarcerated hernia, bowel obstruction, constipation, inflammatory bowel, hepatitis, peptic ulcer disease, splenic infarction, perforated viscus, v ulvitis, ovarian torsion, PID, kidney stone, placenta abruption, this is not meant to be an all-inclusive list EKG interpreted by me (3pts min.). @ -None done X-rays interpreted by me (1pt min.). @ -None done CT interpreted by me (1pt min.). @ -None done U/S interpreted by me (1pt. min.). @ -None done What testing was considered but not performed or refused? (CT, X-rays, U/S, labs)? Why? @ -None What meds were considered but not given or refused? Why? @ -None Did you discuss the management of the patient with other professionals (professionals i.e. , PA, CRUISE STAFF MEMBER, lab, RT, psych nurse, social work professor, after school driver, teacher, business services officer, case making machine operator)? Give summary @ -No Was smoking cessation discussed for >3mins.? @ -No Was critical care preformed (if so, how long)? @ -No Were there social determinants of health that impacted care today? How? (Homelessness, low income, unemployed, alcoholism, drug addiction, transportation, low edu. Level, literacy, decrease access to med. care, fdc, rehab)? @ -No Was there de-escalation of care discussed even if they declined (Discuss DNR or withdrawal of care, Hospice)? DNR status @ -No What co-morbidities impacted this encounter? (DM, HTN, Smoking, COPD, CAD, Cancer, CVA, ARF, Chemo, Hep., AIDS, mental health diagnosis, sleep apnea, morbid obesity)? @ -Obese Was patient admitted / discharged? Hospital course, mention meds given and rou te, prescriptions, significant lab abnormalities, going to OR and other pertinent info. @ -Discharge. 34-year-old female presented to the ER with a chief complaint of umbilical discharge. Patient was seen here 2 days prior and diagnosed with umbilical cellulitis and started on Keflex. History and physical exam completed. Vitals within normal limits. Patient in no signs of acute distress. Exam remarkable for tenderness to periumbilical region with purulent drainage present in umbilicus. Wound culture obtained. Bactrim, Diflucan and nystatin powder will be added. I advised her to clean umbilicus multiple times a day. I advised patient to continue taking [id number] ibuprofen and Tylenol for pain control. I also advise close follow-up with PCP within the next 1 to 2 days. Strict return parameters discussed. Patient discharged in stable condition with follow-up to PCP. Patient verbally expressed understanding and agreement with care plan. Case discussed with ED attending, Dr. Santiago. Undiagnosed new problem with uncertain prognosis? @ -No Drug Therapy requiring intensive monitoring for toxicity (Heparin, Nitro, Insulin, Cardizem)? @ -No Were any procedures done? @ -No Diagnosis/symptom? @ -Umbilical cellulitis with drainage Acute, or Chronic, or Acute on Chronic? @ -Acute Uncomplicated (without systemic symptoms) or Complicated (systemic symptoms)? @ -Uncomplicated Side effects of treatment? @ -No Exacerbation, Progression, or Severe Exacerbation? @ -No Poses a threat to life or bodily function? How? (Chest pain, [place], [place], pneumonia, PE, COPD, DKA, ARF, appy, cholecystitis, CVA, Diverticulitis, Homicidal, Suicidal, threat to staff... and all critical care pts) @ -No Disposition Clinical Impression: Cellulitis of umbilicus Disposition: HOME SELF-CARE Condition: Stable Instructions (If sedation given, give patient instructions): Cellulitis (ED) Additional Instructions: Continue taking antibiotics as prescribed. I recommend cleaning bellybutton 2-3 times a day. Follow-up with PCP in the next 1 to 2 days. Return to the ER for any new or worsening concerns. Prescriptions: Sulfamethoxazole/Trimethoprim [Bactrim DS 800-160 mg] 1 each PO BID 7 Days #14 tablet Fluconazole [Diflucan] 150 mg PO ONCE #2 tab Nystatin 100,000 Unit/gm Powd [Mycostatin Powder] 1 applic TOPICAL BID #15 gm Is patient prescribed a controlled substance at d/c from ED?: No Referrals: None,Stated [Primary Care Provider] - 1-2 days Forms: Area PCPs Time of Disposition: 18:26
[2024-05-04 18:44] VITALS: BP 149/100; PULSE 90; RESP 18
== END 2024-05-04 18:44 | disposition home or self-care (01) ==
LOC: EC 17:54
CPT/HCPCS: 87070; 87077; 87186; 87205; 99284

== ENCOUNTER 2024-06-30 10:29 | Emergency (ER) | payer BC ==
--- NOTE | 2024-06-30 11:36 | ED ---
Nausea/Vomiting/Diarrhea HPI - General Chief complaint: Nausea/Vomiting/Diarrhea Stated complaint: Nausea,dehydrated Time Seen by Provider: 06/30/24 11:34 Source: patient, RN notes reviewed Mode of arrival: ambulatory Limitations: no limitations - History of Present Illness Initial comments: 34-year old female presenting to the ER for complaint of nausea, vomiting, and diarrhea x 1 day. States she woke up at 5 AM yesterday with symptoms. States she is only tolerating small amount of orals due to severe nausea. Denies abdominal pain, vaginal discharge, fever, chills. Denies blood in stool. States she is currently on her menstrual cycle. Denies suspicious foods, recent travel. She does have a history of cholecystectomy in 2018, no other abdominal surgeries or health conditions. - Related Data Home Medications Medication Instructions Recorded Confirmed Acetaminophen Tab [Tylenol Tab] 1,000 mg PO Q6HR PRN 06/30/24 06/30/24 Cetirizine HCl [Zyrtec] 10 mg PO DAILY 06/30/24 06/30/24 Allergies Allergy/AdvReac Type Severity Reaction Status Date / Time latex Allergy Rash/Hives Verified 06/30/24 14:00 Review of Systems ROS Statement: Those systems with pertinent positive or pertinent negative responses have been documented in the HPI. ROS Other: All systems not noted in ROS Statement are negative. Past Medical History Past Medical History: Asthma, Blood Disorder, GERD/Reflux, Skin Disorder, Thyroid Disorder Additional Past Medical History / Comment(s): Migraines; Hiatal hernia. ECZEMA, MINOR PSORIASIS. ANEMIA History of Any Multi-Drug Resistant Organisms: None Reported Past Surgical History: No Surgical Hx Reported Additional Past Surgical History / Comment(s): EGD X 3 Past Anesthesia/Blood Transfusion Reactions: No Reported Reaction Additional Past Anesthesia/Blood Transfusion Reaction / Comment(s): never had blood transfusion Past Psychological History: Anxiety Smoking Status: Vaper Past Alcohol Use History: Rare Past Drug Use History: Marijuana - Past Family History Father Family Medical History: Deep Vein Thrombosis (DVT) Additional Family Medical History / Comment(s): may have had a "minor blood clot 15 years ago in his legs" Mother Family Medical History: Hypertension General Exam Limitations: no limitations General appearance: alert, in no apparent distress Head exam: Present: atraumatic, normocephalic, normal inspection Respiratory exam: Present: normal lung sounds bilaterally. Absent: respiratory distress, wheezes, rales, rhonchi, stridor Cardiovascular Exam: Present: regular rate, normal rhythm, normal heart sounds. Absent: systolic murmur, diastolic murmur, rubs, gallop, clicks GI/Abdominal exam: Present: soft, normal bowel sounds. Absent: distended, tenderness, guarding, rebound, rigid Back exam: Absent: CVA tenderness (R), CVA tenderness (L) Neurological exam: Present: alert, oriented X3 Psychiatric exam: Present: normal affect, normal mood Skin exam: Present: warm, dry, intact, normal color. Absent: rash Course Vital Signs 06/30/24 06/30/24 10:44 13:05 Pulse Rate 94 86 Respiratory 20 20 Rate Blood Pressure 161/93 O2 Sat by Pulse 98 99 Oximetry Medical Decision Making - Medical Decision Making Was pt. sent in by a medical professional or institution (, PA, DIRECTOR OF DIETARY, urgent care, hospital, or intermediate...) When possible be specific @ -No Did you speak to anyone other than the patient for history (EMS, parent, family, police, friend...)? What history was obtained from this source @ -No Did you review nursing and triage notes (agree or disagree)? Why? @ -I reviewed and agree with nursing and triage notes Were old charts reviewed (outside hosp., previous admission, EMS record, old EKG, old radiological studies, urgent care reports/EKG's, intermediate records)? Report findings @ -No old charts were reviewed Differential Diagnosis (chest pain, altered mental status, abdominal pain women, abdominal pain men, vaginal bleeding, weakness, fever, dyspnea, syncope, headache, dizziness, GI bleed, back pain, seizure, CVA, palpatations, mental health, musculoskeletal)? @ -Differential: Appendicitis, Cholecystitis, diverticulosis, ischemic bowel, pancreatitis, hepatitis, UTI, gastroenteritis, AAA, incarcerated hernia, bowel obstruction, constipation, inflammatory bowel, hepatitis, peptic ulcer disease, splenic infarction, perforated viscus, vulvitis, ovarian torsion, PID, kidney stone, placenta abruption, this is not meant to be an all-inclusive list EKG interpreted by me (3pts min.). @ -None X-rays interpreted by me (1pt min.). @ -None done CT interpreted by me (1pt min.). @ -None done U/S interpreted by me (1pt. min.). @ -None done What testing was considered but not performed or refused? (CT, X-rays, U/S, labs)? Why? @ -None What meds were considered but not given or refused? Why? @ -None Did you discuss the management of the patient with other professionals (professionals i.e. DrNav, PA, DIRECTOR OF DIETARY, lab, RT, psych nurse, long term care social worker, paper stripper, teacher, corporation officer, welfare case worker)? Give summary @ -No Was smoking cessation discussed for >3mins.? @ -No Was critical care preformed (if so, how long)? @ -No Were there social determinants of health that impacted care today? How? (Homelessness, low income, unemployed, alcoholism, drug addiction, transportation, low edu. Level, literacy, decrease access to med. care, senior living, rehab)? @ -No Was there de-escalation of care discussed even if they declined (Discuss DNR or withdrawal of care, Hospice)? DNR status @ -No What co-morbidities impacted this encounter? (DM, HTN, Smoking, COPD, CAD, Cancer, CVA, ARF, Chemo, Hep., AIDS, mental health diagnosis, sleep apnea, morbid obesity)? @ -None Was patient admitted / discharged? Hospital course, mention meds given and route, prescriptions, significant lab abnormalities, going to OR and other pertinent info. @ -Discharge. This is a 34-year-old female presenting with nausea, vomiting, and diarrhea x 1 day. Denies abdominal pain. Lab work remarkable for leukocytosis. Abdomen is soft and nontender. Patient is provided with IV fluids and antiemetics. Of 17 likely reactive due to persistent vomiting. Urinalysis reveals large blood however patient is currently on menstrual period, not indicative of UTI at this time. Upon reevaluation, patient reports improvement of symptoms and feel stable for discharge. Discussed diagnosis of gastroenteritis. Appropriate return precautions and supportive care discussed. Case discussed with my ED attending Dr. Stoner Undiagnosed new problem with uncertain prognosis? @ -No Drug Therapy requiring intensive monitoring for toxicity (Heparin, Nitro, Insulin, Cardizem)? @ -No Were any procedures done? @ -No Diagnosis/symptom? @ -Viral gastroenteritis Acute, or Chronic, or Acute on Chronic? @ -Acute Uncomplicated (without systemic symptoms) or Complicated (systemic symptoms)? @ -Uncomplicated Side effects of treatment? @ -No Exacerbation, Progression, or Severe Exacerbation? @ -No Poses a threat to life or bodily function? How? (Chest pain, [place], [place], pneumonia, PE, COPD, DKA, ARF, appy, cholecystitis, CVA, Diverticulitis, Homicidal, Suicidal, threat to staff... and all critical care pts) @ -Not at this time - Lab Data Result diagrams: 06/30/24 11:51 06/30/24 11:51 Lab Results 06/30/24 06/30/24 06/30/24 Range/Units 11:51 11:51 11:51 WBC 17.3 H (3.8-10.6) k/uL RBC 4.80 (3.80-5.40) m/uL Hgb 13.0 (11.4-16.0) gm/dL Hct 39.7 (34.0-46.0) % MCV 82.6 (80.0-100.0) fL MCH 27.0 (25.0-35.0) pg MCHC 32.7 (31.0-37.0) g/dL RDW 13.8 (11.5-15.5) % Plt Count 440 (150-450) k/uL MPV 7.2 Neutrophils % 87 % Lymphocytes % 10 % Monocytes % 2 % Eosinophils % 1 % Basophils % 0 % Neutrophils # 15.0 H (1.3-7.7) k/uL Lymphocytes # 1.7 (1.0-4.8) k/uL Monocytes # 0.4 (0-1.0) k/uL Eosinophils # 0.1 (0-0.7) k/uL Basophils # 0.0 (0-0.2) k/uL Sodium (137-145) mmol/L Potassium (3.5-5.1) mmol/L Chloride (98-107) mmol/L Carbon Dioxide (22-30) mmol/L Anion Gap mmol/L BUN (7-17) mg/dL Creatinine (0.52-1.04) mg/dL Est GFR (CKD-EPI)AfAm (>60 ml/min/1.73 sqM) Est GFR (CKD-EPI)NonAf (>60 ml/min/1.73 sqM) Glucose (74-99) mg/dL Plasma Lactic Acid Abhilash (0.7-2.0) mmol/L Calcium (8.4-10.2) mg/dL Total Bilirubin (0.2-1.3) mg/dL AST (14-36) U/L ALT (4-34) U/L Alkaline Phosphatase (38-126) U/L Total Protein (6.3-8.2) g/dL Albumin (3.5-5.0) g/dL Lipase (23-300) U/L Urine Color Light Red Urine Appearance Cloudy H (Clear) Urine pH 6.5 (5.0-8.0) Ur Specific [place] 1.024 (1.001-1.035) Urine Protein 1+ H (Negative) Urine Glucose (UA) Negative (Negative) Urine Ketones Negative (Negative) Urine Blood Large H (Negative) Urine Nitrite Negative (Negative) Urine Bilirubin Negative (Negative) Urine Urobilinogen <2.0 (<2.0) mg/dL Ur Leukocyte Esterase Moderate H (Negative) Urine RBC >182 H (0-5) /hpf Urine WBC 41 H (0-5) /hpf Ur Squamous Epith Cells 5 H (0-4) /hpf Urine Bacteria Rare H (None) /hpf Urine HCG, Qual Not Detected (Not Detectd) 06/30/24 06/30/24 Range/Units 11:51 11:51 WBC (3.8-10.6) k/uL RBC (3.80-5.40) m/uL Hgb (11.4-16.0) gm/dL Hct (34.0-46.0) % MCV (80.0-100.0) fL MCH (25.0-35.0) pg MCHC (31.0-37.0) g/dL RDW (11.5-15.5) % Plt Count (150-450) k/uL MPV Neutrophils % % Lymphocytes % % Monocytes % % Eosinophils % % Basophils % % Neutrophils # (1.3-7.7) k/uL Lymphocytes # (1.0-4.8) k/uL Monocytes # (0-1.0) k/uL Eosinophils # (0-0.7) k/uL Basophils # (0-0.2) k/uL Sodium 137 (137-145) mmol/L Potassium 4.3 (3.5-5.1) mmol/L Chloride 106 (98-107) mmol/L Carbon Dioxide 22 (22-30) mmol/L Anion Gap 9 mmol/L BUN 14 (7-17) mg/dL Creatinine 0.59 (0.52-1.04) mg/dL Est GFR (CKD-EPI)AfAm >90 (>60 ml/min/1.73 sqM) Est GFR (CKD-EPI)NonAf >90 (>60 ml/min/1.73 sqM) Glucose 102 H (74-99) mg/dL Plasma Lactic Acid Abhilash 1.1 (0.7-2.0) mmol/L Calcium 9.0 (8.4-10.2) mg/dL Total Bilirubin 0.5 (0.2-1.3) mg/dL AST 26 (14-36) U/L ALT 26 (4-34) U/L Alkaline Phosphatase 53 (38-126) U/L Total Protein 7.0 (6.3-8.2) g/dL Albumin 4.4 (3.5-5.0) g/dL Lipase 67 (23-300) U/L Urine Color Urine Appearance (Clear) Urine pH (5.0-8.0) Ur Specific [place] (1.001-1.035) Urine Protein (Negative) Urine Glucose (UA) (Negative) Urine Ketones (Negative) Urine Blood (Negative) Urine Nitrite (Negative) Urine Bilirubin (Negative) Urine Urobilinogen (<2.0) mg/dL Ur Leukocyte Esterase (Negative) Urine RBC (0-5) /hpf Urine WBC (0-5) /hpf Ur Squamous Epith Cells (0-4) /hpf Urine Bacteria (None) /hpf Urine HCG, Qual (Not Detectd) Disposition Clinical Impression: Viral gastroenteritis Disposition: HOME SELF-CARE Condition: Stable Instructions (If sedation given, give patient instructions): Gastroenteritis (ED) Additional Instructions: Take Zofran as needed for nausea. Please return to the Emergency Department if symptoms worsen or any other concerns. Is patient prescribed a controlled substance at d/c from ED?: No Referrals: None,Stated [Primary Care Provider] - 1-2 days Time of Disposition: 14:11
[2024-06-30] MEDS: SODIUM CHLORIDE 0.9% 1,000 ML IV STA ×2 (11:50→14:39)
[2024-06-30] MEDS: ONDANSETRON 4 MG/2 ML VIAL IVP STA ×2 (11:50→13:45)
[2024-06-30 12:11] LABS: Basophils % (A) 0 %; Eosinophils # (A) 0.1 k/uL (0-0.7); Eosinophils % (A) 1 %; HCT 39.7 % (34.0-46.0); Lymphocytes # (A) 1.7 k/uL (1.0-4.8); Lymphocytes % (A) 10 %; MCHC 32.7 g/dL (31.0-37.0); MCV 82.6 fL (80.0-100.0); Mean Platelet Volume 7.2; Monocytes # (A) 0.4 k/uL (0-1.0); Monocytes % (A) 2 %; Neutrophils % (A) 87 %; Platelet Count 440 k/uL (150-450); RDW 13.8 % (11.5-15.5); WBC 17.3 k/uL (3.8-10.6)
[2024-06-30 12:31] LABS: ALT 26 U/L (4-34); AST 26 U/L (14-36); African American GFR (CKD) >90 (>60 ml/min/1.73 sqM); Albumin 4.4 g/dL (3.5-5.0); Alkaline Phosphatase 53 U/L (38-126); Anion Gap 9 mmol/L; Blood Urea Nitrogen 14 mg/dL (7-17); Carbon Dioxide 22 mmol/L (22-30); Chloride 106 mmol/L (98-107); Glucose 102 mg/dL (74-99); Lipase 67 U/L (23-300); Non-African American GFR(CKD) >90 (>60 ml/min/1.73 sqM); Potassium 4.3 mmol/L (3.5-5.1); Sodium 137 mmol/L (137-145); Total Bilirubin 0.5 mg/dL (0.2-1.3)
[2024-06-30 12:47] LABS: Appearance,Urine Cloudy (Clear); Bacteria,Urine Rare /hpf; Bilirubin,Urine Negative (Negative); Blood,Urine Large (Negative); Color,Urine Light Red; Glucose,Urine (UA) Negative (Negative); Ketones,Urine Negative (Negative); Leukocyte Esterase,Urine Moderate (Negative); Nitrite,Urine Negative (Negative); PH, Urine 6.5 (5.0-8.0); Protein,Urine 1+ (Negative); RBC,Urine >182 /hpf (0-5); Specific Gravity,Urine 1.024 (1.001-1.035); Squamous Epithelial Cell,Urine 5 /hpf (0-4); Urobilinogen,Urine <2.0 mg/dL (<2.0); WBC,Urine 41 /hpf (0-5)
[2024-06-30] MEDS: METOCLOPRAMIDE 5 MG/ML 2 ML VIAL IVP STA (14:39)
[2024-06-30] MEDS: ONDANSETRON 4 MG ODT STARTER PACK 2 TAB BTL PO STA (14:39)
[2024-06-30 15:53] VITALS: BP 132/80; PULSE 71; RESP 16; TEMP 98
== END 2024-06-30 15:51 | disposition home or self-care (01) ==
LOC: EC 10:29
DX: A08.4 Viral intestinal infection, unspecified (principal); F17.290 Nicotine dependence, other tobacco product, uncomplicated; Z91.040 Latex allergy status
CPT/HCPCS: 36415; 80053; 83605; 83690; 85025; 81001; 81025; 99284; 96374; 96375 ×2; 96361 ×3; J2765; J2405; S0119